=== PATIENT | female | born 2000 | race Caucasian/White ===

== ENCOUNTER 2024-04-08 15:31 | Emergency (ER) | payer OTHER, SELFPAY ==
--- NOTE | ~2024-04-08 | CT_ITS ---
EXAMINATION: CT abdomen pelvis w con DATE: 04/08/2024 19:10 INDICATION: lower abd pain X 2weeks, nausea TECHNIQUE: Computed tomography (CT) of the abdomen and pelvis was performed with 100 mL Omnipaque-350 intravenous contrast. Automated exposure control and iterative reconstruction technique were employe d. The dose-length product was 964.14 mGy-cm. COMPARISON: None. FINDINGS: Lower thorax: Unremarkable Liver: Normal. Biliary/Gallbladder: Gallbladder is normal. No bile duct dilation. Pancreas: No mass or duct dilation. Spleen: Normal. Adrenals:No mass. Kidneys: No suspicious mass, obstructing stone, or hydronephrosis. GI tract: No small or large bowel dilation. Normal appendix. Mesentery/Peritoneum: No ascites, mass, or free air. Retroperitoneum: No mass. Pelvis: Pelvic organs are within normal limits. Soft Tissues: Soft tissues and body wall unremarkable. Bones: No acute osseous finding. IMPRESSION: No acute abdominal pelvic process detected. Reviewed, dictated and finalized at location K.
--- NOTE | ~2024-04-08 | US_ITS ---
EXAMINATION: US pelvic complete w TV DATE: 04/08/2024 20:49 INDICATION: lower abd pain [id number] TECHNIQUE: Multiple endovaginal sonographic images of the pelvis were obtained. COMPARISON: CT abdomen pelvis, same date. FINDINGS: Uterus: 6.9 x 3.2 x 4.1 cm. Endometrial complex measures 5 mm. Right Ovary: 3.8 x 2.5 x 2.6 cm. Vascular flow is present. No adnexal mass. Left Ovary: 2.9 x 2.1 x 2.1 cm. Vascular flow is present. No adnexal mass. There is trace free fluid in the pelvis. IMPRESSION: Normal pelvic sonogram findings. Reviewed, dictated and finalized at location K.
[2024-04-08 15:57] VITALS: BP 133/68; PULSE 94; RESP 20; TEMP 36.4; O2SAT 99
[2024-04-08 17:53] VITALS: BP 123/71; PULSE 84; RESP 15; O2SAT 100
[2024-04-08 18:14] LABS: Basophils Percent Auto 0.4 % (0.2-1.2); Eosinophils Absolute Auto 0.1 K/mm3 (0-0.3); Eosinophils Percent Auto 0.9 % (0-4.4); Hematocrit 42.7 % (37.0-47.0); Immature Granulocyte Absolute 0.02 K/mm3 (0.00-0.031); Immature Granulocyte Percent A 0.2 % (0-0.5); Lymphocytes Absolute Auto 2.31 K/mm3 (0.9-3.2); Lymphocytes Percent Auto 22.1 % (18.3-44.2); Mean Corpuscular HGB Conc 32.8 g/dl (32-36); Mean Corpuscular Volume 88.6 fl (80-100); Mean Platelet Volume 10.6 fl (7.4-10.4); Monocytes Absolute Auto 0.6 K/mm3 (0.1-0.6); Monocytes Percent Auto 5.9 % (2.6-8.5); Neutrophils Absolute Auto 7.4 K/mm3 (1.3-6.7); Neutrophils Percent Auto 70.5 % (45.5-73.1); Platelet Count Result 304 k/mm3 (150-375); Red Blood Count 4.82 M/mm3 (4.2-5.4); Red Cell Distribution Width 12.3 % (11.5-14.5); White Blood Count 10.5 K/mm3 (4.5-10.0)
[2024-04-08 18:17] LABS: Add Urine Microscopic? NO; Appearance Urine Clear (Clear); Bilirubin Urine Negative (Negative); Blood Urine Negative (Negative); Color Urine Yellow (Yellow); Glucose Urine UA Negative (Negative); Ketones Urine Negative (Negative); Leukocyte Esterase Ur Negative LEU/UL (Negative); Nitrate Urine Negative (Negative); Protein Urine Negative (Negative); Specific Grav Ur 1.019 (1.001-1.035); Urobilinogen Urine 0.2 mg/dL (<2.0); pH Urine 7.5 (5.0-9.0)
[2024-04-08 18:25] LABS: Alanine Aminotransferase 27 U/L (6-35); Albumin Level 4.8 g/dL (3.5-5.1); Alkaline Phosphatase 56 U/L (38-126); Anion Gap 9 mmol/L (4-12); Aspartate Amino Transferase 28 U/L (14-36); Bilirubin,Total 0.5 mg/dL (0.2-1.3); Blood Urea Nitrogen 9 mg/dL (7-17); Calcium 9.3 mg/dL (8.4-10.2); Carbon Dioxide 23 mmol/L (22-30); Chloride 107 mmol/L (98-107); Estimated CRCL calculation 133 ml/min; Estimated Glomerular Filt Rate > 60; Glucose 79 mg/dL (65-110); Lipase 95 U/L (23-300); Potassium 3.9 mmol/L (3.4-5.0); Sodium 139 mmol/L (137-145)
[2024-04-08 18:41] LABS: SPREG INTERNAL CONTROL Positive; Serum Qual hCG Negative
--- NOTE | 2024-04-08 18:53 | PC.NURSE ---
Pt to CT scan via stretcher at this time.
--- NOTE | 2024-04-08 18:57 | ED.ABDPAIN ---
HPI - Abdominal Pain General Chief Complaint: Abdominal Pain Stated Complaint: abd pain Time Seen by Provider: 04/08/24 18:00 Source: patient Mode of arrival: ambulatory Limitations: no limitations History of Present Illness HPI narrative: Patient is a 24-year-old female who presents the ED with report of lower abdominal pain. patient reports having intermittent lower abdominal pain / cramping over the last 2 weeks. States pain is intermittent, constant at times. She has not been taking anything for the pain. Does report intermittent nausea, denies vomiting, diarrhea, constipation, dysuria, hematuria, fevers, abnormal vaginal bleeding. Patient denies active pain upon my evaluation. Related Data Allergies Allergy/AdvReac Type Severity Reaction Status Date / Time No Known Allergies Allergy Mild Verified 04/08/24 17:54 Review of Systems Review of Systems: CONSTITUTIONAL: Denies fever, chills, or sweats. GASTROINTESTINAL: See HPI. GENITOURINARY: Denies dysuria or hematuria. All systems reviewed & are unremarkable except as noted in HPI and below Exam Narrative: GENERAL: Well appearing, obese with BMI of 33.5, non-toxic, in no acute distress. HEAD: Normocephalic, atraumatic. RESPIRATORY: Airway patent, respirations nonlabored. Clear to auscultation bilaterally, no rales, rhonchi, wheezing. CARDIOVASCULAR: Regular rate and rhythm without murmurs, rubs, or gallops. ABDOMINAL: Soft, no significant tenderness throughout lower abdomen, nondistended. Normoactive BS. MUSCULOSKELETAL: Moves all extremities. No gross deformities. SKIN: Warm, dry, normal color. NEURO: A&O X3. Speech clear. PSYCHIATRIC: Appropriate mood and affect. Normal interaction. Course Vital Signs Vital signs: Vital Signs Temperature 97.6 F 04/08/24 15:57 Pulse Rate 94 04/08/24 15:57 Respiratory Rate 20 04/08/24 15:57 Blood Pressure 133/68 04/08/24 15:57 Pulse Oximetry 99 04/08/24 15:57 Oxygen Delivery Room Air 04/08/24 15:57 Temperature 97.6 F 04/08/24 15:57 Pulse Rate 78 04/08/24 21:26 Respiratory Rate 14 04/08/24 21:26 Blood Pressure 126/70 04/08/24 21:26 Pulse Oximetry 99 04/08/24 21:26 Oxygen Delivery Room Air 04/08/24 15:57 MDM - Abdominal Pain MDM Narrative Medical decision making narrative: Patient presented to ED with 2 week history of intermittent lower abdominal cramping. Vitals are stable upon arrival. Patient denies any pain upon my initial evaluation. Laboratory studies are unremarkable. No leukocytosis or anemia. Stable electrolytes. Urinalysis is clear. CT scan of abdomen pelvis was obtained and unremarkable. No significant findings. Pelvic ultrasound was also obtained and again unremarkable. No ovarian cyst. good blood flow to bilateral ovaries. Patient was updated on lab and imaging results, overall reassuring workup. Feel she is safe for discharge home. Advised to follow-up with PCP for further evaluation. Given return precautions. She agrees with plan. Discharged in stable condition. Medical Records Attestation: I reviewed the patient's medical records. Lab Data Attestation: I reviewed the patient's lab results. 04/08/24 18:07 04/08/24 18:08 Labs: Lab Results 04/08/24 04/08/24 Range/Units 18:07 18:08 WBC 10.5 H (4.5-10.0) K/mm3 RBC 4.82 (4.2-5.4) M/mm3 Hgb 14.0 (12.0-15.0) g/dL Hct 42.7 (37.0-47.0) % MCV 88.6 (80-100) fl MCH 29.0 (26-34) pg MCHC 32.8 (32-36) g/dl RDW 12.3 (11.5-14.5) % Plt Count 304 (150-375) k/mm3 MPV 10.6 H (7.4-10.4) fl Immature Gran % (Auto) 0.2 (0-0.5) % Neut % (Auto) 70.5 (45.5-73.1) % Lymph % (Auto) 22.1 (18.3-44.2) % Frederick % (Auto) 5.9 (2.6-8.5) % Eos % (Auto) 0.9 (0-4.4) % Baso % (Auto) 0.4 (0.2-1.2) % Lymph # (Auto) 2.31 (0.9-3.2) K/mm3 Frederick # (Auto) 0.6 (0.1-0.6) K/mm3 Eos # (Auto) 0.1 (0-0.3) K/mm3 Baso # (Aut
[2024-04-08 20:00] VITALS: BP 126/76; PULSE 67; RESP 18; O2SAT 97
[2024-04-08 21:26] VITALS: BP 126/70; PULSE 78; RESP 14; O2SAT 99
== END 2024-04-08 21:26 | disposition home or self-care (01) ==
PROVIDERS: Emergency Medicine; Emergency Provider Physician Assistant
DX: R10.30 Lower abdominal pain, unspecified (principal)
CPT/HCPCS: 36415; 74177; 76830; 76856; 80053; 81003; 81025; 83690; 84703; 85025; 99284; Q9967

== ENCOUNTER 2024-06-28 10:54 | Outpatient (CLI) | payer OTHER, SELFPAY ==
[2024-06-28 13:23] LABS: Beta HCG Quantitative 529.75 mIU/ML
== END 2024-06-28 10:55 | disposition home or self-care (01) ==
LOC: ANHLAB 10:59
PROVIDERS: PCP Nurse Practitioner Family; Visit Provider Advanced Practice Midwife
DX: N91.2 Amenorrhea, unspecified (principal)
CPT/HCPCS: 36415; 84702

== ENCOUNTER 2024-06-30 10:41 | Outpatient (CLI) | payer OTHER, SELFPAY | END 2024-06-30 10:42 | disposition home or self-care (01) | LOC: ANHLAB 10:46 | PROVIDERS: PCP Nurse Practitioner Family; Visit Provider Advanced Practice Midwife | DX: N91.2 Amenorrhea, unspecified (principal) | CPT/HCPCS: 36415; 84702 ==

== ENCOUNTER 2024-11-02 22:18 | Emergency (ER) | payer BC, SELFPAY ==
[2024-11-02 22:23] VITALS: BP 141/77; PULSE 100; RESP 17; TEMP 36.1; O2SAT 100
--- NOTE | 2024-11-02 23:53 | ED.FEMALEGU ---
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 Patient recently tested positive for COVID. She initially called L&D but they prompted her to come to the emergency department since she is COVID positive. Denies any abdominal cramping, vaginal bleeding or discharge. Denies any additional symptoms or concerns at this time. Related Data Allergies Allergy/AdvReac Type Severity Reaction Status Date / Time No Known Allergies Allergy Mild Verified 09/13/24 14:52 Review of Systems Review of Systems: All systems are reviewed and are negative unless stated otherwise in the HPI. [facility] Past Medical History Medical History GERD without esophagitis Anxiety Irritable bowel syndrome with diarrhea Surgical History Surgical History Hx of tonsillectomy H/O adenoidectomy Family History Family History Mother Depression with anxiety Hypertension Sibling Heart disease heart problems Grandparent Alcoholism maternal grandmother Cancer paternal grandmother had breast cancer Depression with anxiety Diabetes mellitus Hypertension Cerebrovascular accident Social History Social History Smoking status: Never smoker Alcohol intake: never Substance use type: does not use Do You Feel Safe in your Home?: Yes Lack of Transportation: No Lack of Food: Never True Current Housing: I Have Housing Concerned About Future Housing: No Difficulty Paying Gas/Electric Bills: No Difficulty Paying for Meds: No Currently Unemployed: No Education: High School Diploma/GED Difficulty w/ Childcare or Family Care: No Living arrangements: other Exam Narrative: General: Alert, awake, afebrile, in no acute distress. HEENT: PERRL, no rhinorrhea, no post nasal drip, oropharynx clear. Neck: Trachea midline, no JVD, no lymphadenopathy. Cardiovascular: Regular rate and rhythm, no murmurs, rubs or gallops, no peripheral edema. Respiratory: Clear to auscultation bilaterally, no tachypnea, no wheezing, no rhonchi, no rubs, no respiratory distress. Abdomen: Soft, nontender, nondistended, no rebound, no guarding, no peritoneal signs. Musculoskeletal: No joint swelling or deformity, normal muscle tone. Skin: No rashes or petechia, no signs of infection. Psychiatric: Alert and oriented, normal behavior and judgment for situation. Neurological: Alert and oriented to person, place, and time. Follows all commands. No focal deficits, speech is clear and fluent. Course Vital Signs Vital signs: Vital Signs Temperature 97.0 F L 11/02/24 22:23 Pulse Rate 100 11/02/24 22:23 Respiratory Rate 17 11/02/24 22:23 Blood Pressure 141/77 H 11/02/24 22:23 Pulse Oximetry 100 11/02/24 22:23 Oxygen Delivery Room Air 11/02/24 22:23 Temperature 97.0 F L 11/02/24 22:23 Pulse Rate 100 11/02/24 22:23 Respiratory Rate 17 11/02/24 22:23 Blood Pressure 141/77 H 11/02/24 22:23 Pulse Oximetry 100 11/02/24 22:23 Oxygen Delivery Room Air 11/02/24 22:23 MDM - Female Genitourinary MDM Narrative Medical decision making narrative: The patient was evaluated by myself in the emergency department. History is obtained from patient who is an independent historian and physical exam was performed. External medical records were reviewed at this time. heart tones were obtained and noted to be between 145-150 beats per minute. Patient states that this is normally where her heart tones usually 1. Differential diagnosis considerations include intrauterine demise, decelerations, threatened miscarriage. Comorbidities impacting this visit include none. I have evaluated and discussed social determinants of health with the patient that could potentially impact subsequent diagnosis and treatment plans. On repeat assessment of the patient, reevaluation revealed that the patient is doing well and is in no acute distress. Patient symptoms have improved since she arrived to our emergency department. Repeat vital signs were all reviewed and noted to be stable. Differential diagnosis and treatment plan were discussed with the patient at bedside. Patient agrees with discussion and after shared medical decision making agrees with discharge. All questions were answered to the patient's satisfaction. Patient will follow up with her OBGYN in 3-5 days. Patient was provided with strict return precautions and instructed to return to the emergency department if any new or worsening symptoms develop. The patient was discharged in stable condition. Discharge Plan Discharge Clinical Impression: heart tones present, Second trimester Patient Disposition: Home, Self-Care Condition: Improved Instructions: Antibiotic Form, COVID-19 (Coronavirus Disease 2019) (ED) Additional Instructions: Please follow-up with your OBGYN within the next 3-5 days. Return to the ED if any new or worsening symptoms develop. Patient Language: Cymraes Prescriptions: No Action PNV #[id number] acid-dha 35 mg iron-5 mg iron-1 mg capsule 1 cap PO DAILY Qty: 90 3RF Follow-up/Referrals: Bambi Correa NP [Primary Care Provider] - 3 Days Time of Disposition: 23:55
--- OUTSIDE RECORDS SUMMARY | 2024-11-04 20:45 | XMS_ITS | Referral Summary ---
Author Organization [facility] Address [address] [place] [address] Care Team Providers Care Nodulizer Name Role Phone Maia Gayle MD Primary Care Provider [phone] Source Comments [facility],non-[facility] Affiliates and Associated Physician Practices is amultiple site organization consisting of ambulatory clinics and hospital sitesin [place], [place], [place] and [place]. This disclosure is being madepursuant to the Care Everywhere program and may not contain all information available regarding this patient. Last updated 18.[facility] [employer] Allergies No known active allergies Medications Be aware that medications may not be up to date on this document. Always verify current medications with the patient. No known medications Active Problems No known active problems Social History Tobacco Use Types Packs/Day Years Used Date Smoking Tobacco: Never Assessed Alcohol Use Standard Drinks/Week Comments No 0 (1 standard drink = 0.6 oz pur e alcohol) Sex and Gender Information Value Date Recorded Sex Assigned at Not on file Gender Identity Not on file Sexual Orientation Not on file Last Filed Vital Signs Vital Sign Reading Time Taken Comments Blood Pressure 118/65 03/08/2012 8:15 AM CDT Pulse 110 03/08/2012 8:15 AM CDT Temperature 37.1 ??C (98.8 ??F) 03/08/2012 8:15 AM CD T Respiratory Rate 22 03/08/2012 8:15 AM CDT Oxygen Saturation 100% 03/07/2012 11:36 PM CDT Inhaled Oxygen Concentration - - Weight 61 kg (134 lb 7.7 oz) 03/07/2012 7:46 PM CDT Height - - Body Mass Index - - Plan of Treatment Not on file Care Teams Nodulizer Relationship Specialty Start Date End Date Maia Gayle MD [address] [place] [address] PCP - General 03/07/12
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
--- OUTSIDE RECORDS SUMMARY | 2024-11-04 20:45 | XMS_ITS | Clinical Summary ---
Author Organization [facility] Address [address] [place] [address] [address] Care [address] Worker Name Role Phone Maia Gayle MD Primary Care Provider [phone] Source Comments [facility],non-[facility] Affiliates and Associated Physician Practices is amultiple site organization consisting of ambulatory clinics and hospital sitesin [place], [place], [place] and [place]. This disclosure is being madepursuant to the Care Everywhere program and may not contain all information available regarding this patient. Last updated 18.[facility] Allergies No known active allergies Medications Be [...] Mass Index - - Plan of Treatment Health Maintenance Due Date Last Done Comments PAP SMEAR 2001 HIV SCREENING 2016 HPV VACCINE (1 - 3-dose series) 2016 CHLAMYDIA/GONORRHEA SCREENING 2017 MENINGOCOCCAL (Group B) VACC INE (1 of 2 - Standard) 2017 HEPATITIS C SCREENING 03/10/2019 DTAP/TDAP/TD VACCINES (1 - Tdap) 2020 HEPATITIS B VACCINE (1 of 3 - 19+ 3-dose series) 2020 COVID-19 VACCINE (1 - 2023-2 5 season) 2024 INFLUENZA VACCINE (#1) 2024 DEPRESSION SCREENING 10/13/2024 ZOSTER VACCINE (1 of 2) 2051 HIB VACCINE Aged Out No longer eligi ble based on patient's age to complete this topic MENINGOCOCCAL VACCINE Aged Out No leno alva eligible based on patient's age to complete this topic PNEUMOCOCCAL VACCINE Aged Out No long er eligible based on patient's age to complete this topic Care Teams Drive Worker Relationship Specialty Start Date End Date Maia Gayle MD [address] [place] [address] PCP - General 03/07/12
--- OUTSIDE RECORDS SUMMARY | 2024-11-04 20:45 | XMS_ITS | CONTINUITY OF CARE DOCUMENT ---
Author Name alda lizama Address Unknown Organization [facility] Address [id number] [place] [address] [address] [place] [address] Phone [phone] Care Team Providers Care Gold Leaf Gilder Name Role Phone Sugey Williamson MD Unavailable KRYSTIN CELIS MD Unavailable [phone] INSURANCE PROVIDERS Payer name Policy type / Coverage type [place] Medicaid 1 [id number]
--- OUTSIDE RECORDS SUMMARY | 2024-11-04 20:45 | XMS_ITS | Clinical Summary ---
Author Organization [facility] Address [address] [place] [address] Phone Care Team Providers Care [employer] Manager Name Role Phone Cris Posada MD Primary Care Provider Unavail able Allergies No known active allergies Medications No known medications Active Problems No known active problems Immunizations Immunization Administration Dates Next Due (ACTHIB/HIBERIX)(2 MOS-5 YRS /6 WKS-4 YRS) HAEMOPHILUS INFLUENZAE TYPE B VACCINE (HIB), PRP-T CONJUGATE, 4 DOSE, 0.5 ML IM 09/15/2002,2001,2001,05/22 (ADACEL/BOOSTRIX)(10 YR UP) TDAP VACCINE, 0.5ML, IM 09/13/2020,08/13/2012 (GARDASIL 9)(9-45 YRS) HUMAN PAPILLOMAVIRUS VACCINE, TYPES 6, 11, 16, 18, 31, 33, 45, 52, 58, NONAVALENT (9VHPV), 2 OR 3 DOSE, IM 09/13/2020 (GARDASIL)(9-45 YRS) HUMAN PAPILLOMAVIRUS VACCINE, TYPES 6, 11, 16, 18, QUADRIVALENT (4VHPV), 3 DOSE, IM 07/26/2015 (INFANRIX)(6 WKS-6 YRS) DIPT HERIA, TETANUS TOXOIDS, AND ACCELLULAR PERTUSSIS VACCINE (DTAP), 0.5 ML IM 04/24/2006,09/15/2002,2001,07/24,2001 (IPOL)(6 WKS AND UP) POLIOVI REBECCA VACCINE, INACTIVATED (IPV), 3 DOSE, SUBCUT OR IM 04/24/2006,09/15/2002,2001,05/22 (M-M-R II/PRIORIX)(12 MO UP) MEASLES, MUMPS AND RUBELLA VIRUS VACCINE, 0.5 ML IM/SUBCUT 06/15/2007,04/24/2006 (MENACTRA)(9 MO-55 YR) MENIN GOCOCCAL POLYSACCHARIDE A, C, Y AND W-135 DIPTHERIA TOXOID CONJUGATE VACCINE, (PF), 0.5ML, IM 08/13/2012 (VARIVAX)(12 MOS UP)VARICELL A VIRUS VACCINE (PF) 0.5 ML, SUB CUT 12/17/2007,03/16/2002 Hepatitis B Vaccine 2001,2001,2000 INFLUENZA VACCINE QUADRIVALE NT 6 MOS UP PF IM 09/13/2020,07/04/2017 Influenza Seasonal Unspecifi ed Formulation IM 07/26/2015 Meningococcal A Conjugate Vaccine IM 07/04/2017 PREVNAR (PCV13) pneumococcal 13-valent conjugate Vaccine 06/15/2002,2001,2001,05/22 Skin Test TB 09/13/2020 Social History Tobacco Use Types Packs/Day Years Used Date Smoking Tobacco: Never Assessed Comments Unknown Sex and Gender Information Value Date Recorded Sex Assigned at Not on file Legal Sex Female 3:03 PM CDT Gender Identity Not on file Sexual Orientation Not on file Last Filed Vital Signs Vital Sign Reading Time Taken Comments Blood Pressure 112/72 02/08/2021 10:24 AM CDT Pulse 78 02/08/2021 10:24 AM CDT Temperature 36.7 ??C (98 ??F) 02/08/2021 10:24 AM CDT Respiratory Rate 18 02/08/2021 10:24 AM CDT Oxygen Saturation 100% 02/08/2021 10:24 AM CDT Inhaled Oxygen Concentration - - Weight 104.8 kg (231 lb) 02/08/2021 10:24 AM CDT Height 172.7 cm (5' 8 ) 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 Body Mass Index 35.12 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 Plan of Treatment Health Maintenance Due Date Last Done Comments CHLAMYDIA SCREENING (ANNUAL) 11-24 YEARS 2012 CERVICAL CANCER SCREENING 2022 INFLUENZA VACCINE (#1) 2024 0, 07/04/2017, 07/26/2015 DTAP/TDAP/TD VACCINES (8 - T d or Tdap) 09/13/2030 09/13/2020, 08/13/2012, 04/24/2006, Additional history exists HEPATITIS B VACCINES Completed 2001, 2001, 2001 PNEUMOCOCCAL VACCINE 0-64 YEARS Completed 06/15/2002, 2001, 2001, Additional history exists HPV VACCINES Completed 09/13/2020, 07/26/2015 Insurance Care Teams [employer] Relationship Specialty Start Date End Date Cris Posada MD PCP - General Pediatrics 07/04/17
--- OUTSIDE RECORDS SUMMARY | 2024-11-04 20:45 | XMS_ITS | Data Portability ---
Author Organization [facility] Address [address] [place] [place] [address] Care Team Providers Care Casing Sewer Name Role Phone ERICALEATHA LUCIA Primary Care Provider [phone] Assessment Encounter Date Assessment Date Assessment LastModified by Organization Details LastModified Time 09/22/2024 09/22/2024 Patient is __16_weeks . Discussed plan. Not available 09/22/2024 13:52:40 10/20/2024 10/20/2024 Patient is _20__weeks . Discussed plan. [email or web address] Not available 10/20/2024 16:47:34 Plan of Treatment Reminders Order Date Submit Date Provider Last Modified By Organization Details Last Modified Time Details Appointments U/S OB BASELIN E 2024 11:00A M ULTRASOUND Not available Not available Not available OB ROUTINE 2024 01:45P M Rebecca Romero CNM Not available Not available Not available Lab drug screen, urine 2023 024 [email or web address] [place], [address], [place], [address], 08/25/2024 12:22:40 culture , urine 2023 024 [facility] (Lab), [address], [place], [address], 08/26/2024 23:47:26 Referral None recorde d. Procedures None recorde d. Surgeries None recorde d. Imaging US, obstetr ic, limited 2023 024 [email or web address] [address] [place], [address], [place], [address], 09/22/2024 14:19:44 US, obstetr ic, 2nd or 3rd trimest er 2024 025 [email or web address] [address], [address], [place], [address], 10/20/2024 21:45:30 Medication Orders scopola mine 1 mg over 3 days transde rmal patch 2023 024 [facility]acy #[id number], [address], [place], [address], 08/25/2024 12:30:25 Patient TargetsNo targets recorded. Patient InstructionsNo instructions recorded. Reason for Referral None Reported. Results Created Date Observation Date Name Description Value Unit Range Abnormal Flag Note LastModifiedBy Organization Detail LastModifiedTime 08/30/20 24 08/30/2024 [UNIT Y] ANEUP LOIDY NIPT fraction 5.3% normal Not Available [facility] [address], [place], [address], 08/30/2024 17:29:11 08/30/20 24 08/30/2024 [UNIT Y] ANEUP LOIDY NIPT 22Q11.2 microdeletio n LOW RISK <1 in 10,000 normal Not Available [facility] [address], [place], [address], 08/30/2024 17:29:11 08/30/20 24 08/30/2024 [UNIT Y] ANEUP LOIDY NIPT sex chromosome aneuploidy NOT DETECT ED normal Not Available [facility] [address], [place], [address], 08/30/2024 17:29:11 08/30/20 24 08/30/2024 [UNIT Y] ANEUP LOIDY NIPT monosomy X LOW RISK <1 in 10,000 normal Not Available [facility] [address], [place], [address], 08/30/2024 17:29:11 08/30/20 24 08/30/2024 [UNIT Y] ANEUP LOIDY NIPT trisomy 13 LOW RISK <1 in 10,000 normal Not Available [facility] [address], [place], [address], 08/30/2024 17:29:11 08/30/20 24 08/30/2024 [UNIT Y] ANEUP LOIDY NIPT trisomy 18 LOW RISK <1 in 10,000 normal Not Available [facility] [address], [place], [address], 08/30/2024 17:29:11 08/30/20 24 08/30/2024 [UNIT Y] ANEUP LOIDY NIPT trisomy 21 LOW RISK <1 in 10,000 normal Not Available [facility] [address], [place], [address], 08/30/2024 17:29:11 08/30/20 24 08/30/2024 [UNIT Y] ANEUP LOIDY NIPT sex FEMALE normal Not Available [facility] [address], [place], [address], 08/30/2024 17:29:11 08/30/20 24 08/30/2024 [UNIT Y] ANEUP LOIDY NIPT gestation SINGLE TON normal Not Available [facility] [address] , [place], [address], 08/30/2024 17:29:11 08/30/20 24 08/30/2024 [UNIT Y] ANEUP LOIDY NIPT for detailed report, see pdf See PDF normal Not Available [facility] [address], [place], [address], 08/30/2024 17:29:11 09/02/20 24 09/02/2024 [UNIT Y] CHRISTINE Bone sickle cell disease/beta -thalassemia /hemoglobino pathies carrier screen NEGATI VE normal Not Available [facility] [address], [place], [address], 09/02/2024 23:34:44 09/02/20 24 09/02/2024 [UNIT Y] CHRISTINE Bone alpha-thalas semia carrier screen NEGATI VE normal Not Available [facility] [address], [place], [address], 09/02/2024 23:34:44 09/02/20 24 09/02/2024 [UNIT Y] CHRISTINE Bone cystic fibrosis carrier screen NEGATI VE normal Not Available [facility] [address], [place], [address], 09/02/2024 23:34:44 09/02/20 24 09/02/2024 [UNIT Y] CHRISTINE Bone spinal muscular atrophy carrier screen NEGATI VE 2 SMN1 copies , SNP not presen t normal Not Available [facility] [address], [place], [address], 09/02/2024 23:34:44 09/02/20 24 09/02/2024 [UNIT Y] CHRISTINE Bone for detailed report, see pdf See PDF normal Not Available [facility] [address], [place], [address], 09/02/2024 23:34:44 08/25/20 24 08/25/2024 CBC W/DIF F WBC 11.1 10'3/ uL 3.5-10 .5 high Not Available [facility] (Lab) [address], [place], [address], 08/26/2024 12:29:11 08/25/20 24 08/25/2024 CBC W/DIF F RBC 4.61 10'6/ uL (based on docume nted legal sex) 3.80-5 .20 Not Available [facility] (Lab) [address], [place], [address], 08/26/2024 12:29:11 08/25/20 24 08/25/2024 CBC W/DIF F HGB 13.6 g/dL (based on docume nted legal sex) 11.6-1 5.4 Not Available [facility] (Lab) [address], [place], [address], 08/26/2024 12:29:11 08/25/20 24 08/25/2024 CBC W/DIF F HCT 40.8 % (based on docume nted legal sex) 34.0-4 5.0 Not Available [facility] (Lab) [address], [place], [address], 08/26/2024 12:29:11 08/25/20 24 08/25/2024 CBC W/DIF F MCV 88.5 fL 80.0-9 9.0 Not Available [facility] (Lab) [address], [place], [address], 08/26/2024 12:29:11 08/25/20 24 08/25/2024 CBC W/DIF F MCH 29.5 pg 27.0-3 4.0 Not Available [facility] (Lab) [address], [place], [address], 08/26/2024 12:29:11 08/25/20 24 08/25/2024 CBC W/DIF F MCHC 33.3 g/dL 32.0-3 5.5 Not Available [facility] (Lab) [address], [place], [address], 08/26/2024 12:29:11 08/25/20 24 08/25/2024 CBC W/DIF F RDW 12.4 % 11.0-1 5.0 Not Available [facility] (Lab) [address], [place], [address], 08/26/2024 12:29:11 08/25/20 24 08/25/2024 CBC W/DIF F plt 274 10'3/ uL 150-40 0 Not Available [facility] (Lab) [address], [place], [address], 08/26/2024 12:29:11 08/25/20 24 08/25/2024 CBC W/DIF F MPV 11.5 fL 8.8-12 .1 Not Available [facility] (Lab) [address], [place], [address], 08/26/2024 12:29:11 08/25/20 24 08/25/2024 CBC W/DIF F NRBC's 0.0 % 0.0 Not Available [facility] (Lab) [address], [place], [address], 08/26/2024 12:29:11 08/25/20 24 08/25/2024 CBC W/DIF F absolute NRBCs 0.0 10'3/ uL no refere nce range establ ished Not Available [facility] (Lab) [address], [place], [address], 08/26/2024 12:29:11 08/25/20 24 08/25/2024 CBC W/DIF F neutrophils 76.3 % 34.0-7 3.0 high Not Available [facility] (Lab) [address], [place], [address], 08/26/2024 12:29:11 08/25/20 24 08/25/2024 CBC W/DIF F lymphocytes 16.5 % 15.0-5 0.0 Not Available [facility] (Lab) [address], [place], [address], 08/26/2024 12:29:11 08/25/20 24 08/25/2024 CBC W/DIF F monocytes 6.0 % 1.0-15 .0 Not Available [facility] (Lab) [address], [place], [address], 08/26/2024 12:29:11 08/25/20 24 08/25/2024 CBC W/DIF F eosinophils 0.5 % 0.0-8. 0 Not Available [facility] (Lab) [address], [place], [address], 08/26/2024 12:29:11 08/25/20 24 08/25/2024 CBC W/DIF F basophils 0.3 % 0.0-2. 0 Not Available [facility] (Lab) [address], [place], [address], 08/26/2024 12:29:11 08/25/20 24 08/25/2024 CBC W/DIF F immature granulocytes 0.4 % no define d refere nce range Not Available [facility] (Lab) [address], [place], [address], 08/26/2024 12:29:11 08/25/20 24 08/25/2024 CBC W/DIF F absolute neutrophils 8.5 10'3/ uL 1.5-8. 0 high Not Available [facility] (Lab) [address], [place], [address], 08/26/2024 12:29:11 08/25/20 24 08/25/2024 CBC W/DIF F absolute lymphocytes 1.8 10'3/ uL 1.0-4. 0 Not Available [facility] (Lab) [address], [place], [address], 08/26/2024 12:29:11 08/25/20 24 08/25/2024 CBC W/DIF F absolute monocytes 0.7 10'3/ uL 0.2-1. 0 Not Available [facility] (Lab) [address] [place], [address], 08/26/2024 12:29:11 08/25/20 24 08/25/2024 CBC W/DIF F absolute eosinophils 0.1 10'3/ uL 0.0-0. 6 Not Available [facility] (Lab) [address], [place], [address], 08/26/2024 12:29:11 08/25/20 24 08/25/2024 CBC W/DIF F absolute basophils 0.0 10'3/ uL 0.0-0. 3 Not Available [facility] (Lab) [address], [place], [address], 08/26/2024 12:29:11 08/25/20 24 08/25/2024 CBC W/DIF F absolute immature granulocytes 0.0 10'3/ uL 0.00-0 .10 08/26 2:08 AM: P indic ates parti al resul ts on a panel have been relea sed. Addit ional resul ts will follo w. 08/26 2:08 AM: This resul t has been final verif ied. No addit ional or juarez ed resul ts are expec brandie. Not Available [facility] (Lab) [address], [place], [address], 08/26/2024 12:29:11 08/25/20 24 08/25/2024 HIV 1/2 ANTIG EN/AN TIBOD Y, REFLE X CONFI RMATI ON HIV antigen/anti body Nonrea ctive nonrea ctive HIV-1 antig en and HIV-1 /HIV- 2 antib odies were not detec brandie. No labor atory evide nce of HIV infec tion. Not Available [facility] (Lab) [address], [place], [address], 08/26/2024 12:29:11 08/25/20 24 08/25/2024 HEPAT ITIS B SURFA CE ANTIG EN hepatitis B surface antigen Non-re active non-re active This assay was perfo rmed using [employer] ratio n reage nts and test kits. Value s obtai carola with other assay metho ds or kits canno t be used inter juarez eably . Not Available [facility] (Lab) [address], [place], [address], 08/26/2024 12:29:11 08/25/20 24 08/25/2024 HEPAT ITIS C ANTIB THI SCREE N, REFLE X TO CONFI RMATI ON hepatitis C antibody Non-re active non-re active Antib odies to HCV Not Detec brandie, does not exclu de the possi bilit y of expos ure to HCV. Not Available [facility] (Lab) [address], [place], [address], 08/26/2024 12:29:12 08/25/20 24 08/25/2024 RUBEL LA IGG ANTIB THI, QUANT rubella antibodies, IgG Reacti ve reacti ve Not Available [facility] (Lab) [address], [place], [address], 08/26/2024 12:29:12 08/25/20 24 08/25/2024 RUBEL LA IGG ANTIB THI, QUANT rubella antibodies, IgG quant 20.7 IU/mL >=10 Non-r eacti ve (Non- Immun e) <10 IU/mL React yvette (Immu ne) > or = 10 IU/mL Not Available [facility] (Lab) [address], [place], [address], 08/26/2024 12:29:12 08/25/20 24 08/25/2024 HEMOG LOBIN A1C hemoglobin A1C 5.0 % 0-5.6 The Ameri can [employer]abe meka [employer] iatio n recom mends that a prima ry goal of thera py flavia d be a HBA1C of < 7% and that physi cians shoul d reeva luate the treat ment regim en in patie nts with HBA1C value s consi stent ly > 8%. <5.7% Libby l 5.7 - 6.4% Incre ased risk for diabe meka >=6.5 % Diagn ostic of diabe meka <7.0% Goal of thera py >8.0% Actio n sugge sted Not Available [facility] (Lab) [address], [place], [address], 08/26/2024 12:29:12 11/13/20 24 08/25/2024 TYPE/ RH/SC REEN ABO/Rh type B POS Not Available [facility] (Lab) [address], [place], [address], 08/26/2024 12:29:13 08/25/20 24 08/25/2024 TYPE/ RH/SC REEN antibody screen NEG Not Available [facility] (Lab) [address], [place], [address], 08/26/2024 12:29:13 08/25/20 24 08/25/2024 TYPE/ RH/SC REEN exp date 2023 23:59 Not Available [facility] (Lab) [address], [place], [address], 08/26/2024 12:29:13 08/25/20 24 08/25/2024 RPR SCREE N, REFLE X TITER /CONF IRMAT ION RPR screen Nonrea ctive nonrea ctive Not Available [facility] (Lab) [address], [place], [address], 08/26/2024 12:29:13 08/25/20 24 08/25/2024 CULTU RE: URINE result report SEE RESULT S BELOW Test: Cultu re: Urine Speci men Sourc e: Urine - Clean Catch Speci men Type: Urine Speci men Date: 08/25 1134 Resul t Date: 08/26 2243 Resul t Statu s: Final resul t Abnor mal: No Resul ting Lab: [facility] [address] [facility] [address] Tel: CULTU RE ----- ----- ----- --- No growt h in 1 day (dete ction level of 10,00 0 colon ies / ml.) Not Available [facility] (Lab) [address], [place], [address], 08/26/2024 23:47:26 08/25/20 24 08/25/2024 drug scree n, urine Amphetamines : negati ve Not Available [place] [address], [place], [address], 08/25/2024 12:21:52 08/25/20 24 08/25/2024 drug scree n, urine Cannabinoids : negati ve Not Available [place] [address], [place], [address], 08/25/2024 12:21:52 08/25/20 24 08/25/2024 drug scree n, urine Cocaine: negati ve Not Available [place] [address], [place], [address], 08/25/2024 12:21:52 08/25/20 24 08/25/2024 drug scree n, urine Opiates: negati ve Not Available [place] [address], [place], [address], 08/25/2024 12:21:52 08/25/20 24 08/25/2024 drug scree n, urine Phenocyclidi ne: negati ve Not Available [place] [address], [place], [address], 08/25/2024 12:21:52 08/25/20 24 08/25/2024 drug scree n, urine Barbiturates : negati ve Not Available [place] [address], [place], [address], 08/25/2024 12:21:52 08/25/20 24 08/25/2024 drug scree n, urine Benzodiazepi paula: negati ve Not Available [place] [address], [place], [address], 08/25/2024 12:21:52 08/25/20 24 08/25/2024 drug scree n, urine Ethanol: negati ve Not Available [place] [address], [place], [address], 08/25/2024 12:21:52 08/25/20 24 08/25/2024 drug scree n, urine Hallucinogen s: negati ve Not Available [place] [address], [place], [address], 08/25/2024 12:21:52 08/25/20 24 08/25/2024 drug scree n, urine Inhalants: negati ve Not Available [place] [address], [place], [address], 08/25/2024 12:21:52 08/25/20 24 08/25/2024 drug scree n, urine Anabolic Steroids: negati ve Not Available [place] [address], [place], [address], 08/25/2024 12:21:52 08/25/20 24 08/25/2024 drug scree n, urine Other: negati ve Not Available [place] [address], [place], [address], 08/25/2024 12:21:52 08/02/20 24 08/02/2024 US, obste tric, 1st trime ster No observ ation record ed. [email or web address] [address] [facility], [place], [address], 08/02/2024 21:02:12 08/24/20 24 08/24/2024 US, obste tric, nucha l trans lucen cy No observ ation record ed. [email or web address] [place] [address], [place], [address], 08/24/2024 13:09:14 08/24/20 24 08/24/2024 US, obste tric, follo w-up No observ ation record ed. KENDAL [address], [place], [address], 08/30/2024 10:41:02 09/22/20 24 09/22/2024 US, obste tric, limit ed No observ ation record ed. [email or web address] [place] [address], [place], [address], 09/22/2024 13:11:40 09/22/20 24 09/22/2024 US, obste tric, follo w-up No observ ation record ed. [address], [place], [address], 09/23/2024 09:28:47 10/20/19 25 10/20/2024 US, obste tric, 2nd or 3rd trime ster No observ ation record ed. [email or web address] [place] [address], [place], [address], 10/20/2024 18:08:06 10/20/19 25 10/20/2024 US, obste tric, follo w-up No observ ation record ed. [email or web address] [address], [place], [address], 10/22/2024 17:43:31 Result Notes None recorded. Problems Name Problem SNOMED Code Status Onset Date Resolution Date Notes Provider Name and Address Organization Details Recorded Time 23123696 Active 2023 Lexie Olivo [facility], [facility] 4 12:10:37 Obesity 175696677 Active bmi 37-anten atal testing Rebecca Romero CNM [address], [place], [address], [facility] 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 4 12:36:02 COVID-19 380590323 Active 2024 bASA and serial growth Angelica Valentin null, [facility] 5 15:23:56 COVID-19 046170997 Active 2024 bASA and serial growth Angelica Valentin [facility], [facility] 5 15:23:56 Problem Notes None recorded. Procedures Surgical History Date Name Laterality Status Provider Name and Address Organization Details Recorded Time 04/13/20 24 Date of Last Pap Smear completed [facility] 07/08/2024 13:18:31 10/13/19 09 tonsilectomy/adeno ids completed [facility] 08/04/2024 16:59:33 10/13/19 07 adenomyomectomy completed [facility] 08/04/2024 16:59:28 Imaging Results Imaging Date Name Status LastModified by Organization Details LastModified Time 08/02/2024 US, obstetric, 1st trimester completed [email or web address] [address], [place], [address], 08/02/2024 21:02:12 08/24/2024 US, obstetric, nuchal translucency completed [email or web address] [place] [address], [place], [address], 08/24/2024 13:09:14 08/24/2024 US, obstetric, follow-up completed KENDAL [address], [place], [address], 08/30/2024 10:41:02 09/22/2024 US, obstetric, limited completed [email or web address] [place] [address], [place], [address], 09/22/2024 13:11:40 09/22/2024 US, obstetric, follow-up completed [email or web address] [address], [place], [address], 09/23/2024 09:28:47 10/20/2024 US, obstetric, 2nd or 3rd trimester completed [email or web address] [place] [address], [place], [address], 10/20/2024 18:08:06 10/20/2024 US, obstetric, follow-up completed [email or web address] [address], [place], [address], 10/22/2024 17:43:31 Procedure Notes None recorded. Medical Equipment None Reported. Allergies No known drug allergies Medications Name Sig Start Date Stop Date Status Note LastModified by Organization Details LastModified Time benzonatate 200 mg capsule TAKE 1 CAPSULE BY MOUTH THREE TIMES DAILY NEEDED FOR COUGH 01/19 completed Not Available Not Available Not Available prednisone 20 mg tablet TAKE 2 TABLETS BY MOUTH DAILY WITH FOOD FOR 5 DAYS. DO NOT TAKE WITH ASPIRIN OR NSAIDS SUCH ALEVE OR IBUPROFEN ETC 01/19 completed Not Available Not Available Not Available amoxicillin 875 mg tablet TAKE 1 TABLET BY MOUTH EVERY 12 HOURS FOR 10 DAYS 01/19 completed Not Available Not Available Not Available scopolamine 1 mg over 3 days transdermal patch APPLY 1 PATCH BY TRANSDERM AL ROUTE FOR 3 DAYS. active Not Available Not Available No t Available albuterol sulfate HFA 90 mcg/actuati on aerosol inhaler INHALE 2 PUFFS BY MOUTH EVERY 4 HOURS NEEDED 01/19 completed Not Available Not Available Not Available ondansetron 4 mg disintegrat ing tablet DISSOLVE 1 TABLET ON THE TONGUE EVERY 6 HOURS active Not Available Not Available No t Available Vitafol Ultra 29 mg iron-1 mg-200 mg capsule active Not Available Not Available Not Available Aurovela Fe 1-20 (28) 1 mg-20 mcg (21)/75 mg (7) tablet TAKE 1 TABLET BY MOUTH EVERY DAY 04/13 completed Not Available Not Available Not Available Nextstellis 3 mg-14.2 mg (28) tablet TAKE 1 TABLET BY MOUTH EVERY DAY 07/09 completed Not Available Not Available Not Available Vitals Date Recorded Body height Body mass index (BMI) Body weight Systolic blood pressure Diastolic blood pressure Provider Name and Address Organization Details Last Updated DateTime 08/25/2024 170.18 cm 35.2 kg/m2 240909.2 8 g 122 mm[Hg] 76 mm[Hg] Lexie Olivo [facility] 4 12:09:40 Date Recorded Body weight Body mass index (BMI) Body height Systolic blood pressure Diastolic blood pressure Provider Name and Address Organization Details Last Updated DateTime 09/22/2024 917923.2 8325 g 35.2 kg/m2 170.18 cm 115 mm[Hg] 77 mm[Hg] Lexie [facility] 4 12:25:54 Date Recorded Body weight Body mass index (BMI) Body height Systolic blood pressure Diastolic blood pressure Provider Name and Address Organization Details Last Updated DateTime 10/20/2024 073250.0 6036 g 35.7 kg/m2 170.18 cm 117 mm[Hg] 80 mm[Hg] [facility] 5 16:35:32 Social History Question Answer Notes LastModified by Organizat ion Details LastModified Time Tobacco Smoking Status Never Smoker Lena Cartagena yeison, [facility] 01/20/2024 13:45:36 What Is Your Level Of Alcohol Consumption? None [email or web address] Information not available 07/09/2024 If You Are , What Was Your Level Of Alcohol Consumption Prior To ? Occasional [email or web address] Information not available 07/09/2024 How Many Years Have You Consumed Alcohol? 1 Information not available 04/13/2024 Are You Blind Or Do You Have Difficulty Seeing? No Information not available 04/13/2024 What Is Your Level Of Caffeine Consumption? Occasional Information not available 01/20/2024 How Much Tobacco Do You Chew? None Information not available 04/13/2024 In The 14 Days Before Symptom Onset, Have You Had Close Contact With A Laboratory-confir med COVID-19 While That Case Was Ill? No Information not available 01/20/2024 In The 14 Days Before Symptom Onset, Have You Had Close Contact With A Person Who Is Under Investigation For COVID-19 While That Person Was Ill? No Information not available 01/20/2024 Have You Been To An Area Known To Be High Risk For COVID-19? No Information not available 01/20/2024 Are You Deaf Or Do You Have Serious Difficulty Hearing? No Information not available 04/13/2024 What Type Of Diet Are You Following? REGULAR Information not available 04/13/2024 What Is The Highest Grade Or Level Of School You Have Completed Or The Highest Degree You Have Received? 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 No Information not available 04/13/2024 Do You Use Protection During Sex? No Information not available 04/13/2024 Do You Use Your Seat Belt Or Car Seat Routinely? Yes Information not available 04/13/2024 Do You Have Smoke And Carbon Monoxide Detectors In Your Home? Yes Information not available 04/13/2024 At What Age Did You Start Smoking Tobacco? 0 Information not available 04/13/2024 How Much Tobacco Do You Smoke? No Information not available 04/13/2024 Do You Feel Stressed (tense, Restless, Nervous, Or Anxious, Or Unable To Sleep At Night)? [id number] Information not available 08/04/2024 Do You Use Any Illicit Or Recreational Drugs? No Information not available 04/13/2024 Do You Use Sunscreen Routinely? Yes Information not available 04/13/2024 How Many Years Have You Smoked Tobacco? 0 Information not available 04/13/2024 Have You Used IV Drugs? No Information not available 04/13/2024 Sex: Unknown Functional Status Question Answer Note LastModified by Organizat ion Details LastModified Time Do you have difficulty walking or climbing stairs? No [email or web address] Information not available 07/09/2024 Are you able to walk? [email or web address] Information not available 04/13/2024 Are you able to care for yourself? Yes [email or web address] Information not available 07/09/2024 Do you have difficulty dressing or bathing? No [email or web address] Information not available 07/09/2024 What is your exercise level? Occasional Information not available 04/13/2024 Mental Status None recorded. Family History Relationship Description Onset Age of this Age Resolved Age Notes LastModified by Organization Details LastModified Time [email or web address] Not available 2023 13:48:23 Paternal Grandmother Malignant tumor of breast [email or web address] Not available 2023 14:05:10 Paternal Grandfather Diabetes mellitus [email or web address] Not available 2023 13:49:17 Maternal Aunt Polycystic ovary syndrome [email or web address] Not available 10/20 16:36:23 Maternal Grandmother Disorder of thyroid gland [email or web address] Not available 08/25 12:10:06 Maternal Grandfather Hypertensive disorder [email or web address] Not available 08/25 12:10:06 Maternal Grandfather Diabetes mellitus Not available 10/20 16:36:23 Father Disorder of thyroid gland Not available 08/25 12:10:06 Medical History Condition Response Allergies (Food, seasonal, environmental ) N Other N Breast Cancer N Drug/Latex Allergies/Reactions N Blood Transfusion N Dermatologic Disorders N Lung Disease N Defects or Inherited Disease N Breast Problem N Gestational Diabetes N Hematologic disorders N Anesthesia Complications N History of STI N Deep Vein Thrombosis N Polycystic ovary syndrome N Anxiety Disorder N Autoimmune disease N Arthritis N Infertility N Polyps N Acid Reflux (GERD) N History of abnormal pap N Cancer N Stroke N Varicosities N Neurologic/Epilepsy N Endometriosis N High Cholesterol N Headaches N Fibromyalgia N Kidney Disease N Heart Problems N Kidney or Bladder Problems N Thyroid Problems N GI Problems N Eating Disorder N Anemia N Art (IVF or FET) N Psychiatric Illness N Ovarian Cancer N Diabetes N Pulmonary (TB, Asthma) N Hepatitis/Liver Disease N No Past Medical History N Eczema N Urinary Tract Infection N Abuse/Domestic Violence N Asthma N Trauma/Violence N Depression/ depression N Heart Disease N Pre-Eclampsia N Hypertension N Osteoporosis N Thrombophilias N Gynecological History Statement/Question Response Abnormal Pap N Date of Last Mammogram Date of LMP 04/17/2024 N On BCP's at Conception? N STIs/STDs N Was last menstrual period normal Y HPV Vaccine Y Colposcopy Duration of Flow (days) 4 Current Control Method Date of control 01/30/2024 Are cycles usually normal N Date of Last Colonoscopy Sexually Active? Y N/A Menses Monthly Y Date of DEXA bone scan Age of first menstrual cycle 13 Date of Last Pap Smear 04/13/2024 Sexual Problems? N LMP Approximate N Obstetrics History GPAL:G 1 P 0 0 0 0 Type Value Living 0 Total 1 Past Encounters Encounter ID Performer Location Encounter Start Date Encounter Closed Date Diagnosis/Indication Diagnosis SNOMED-CT Code Diagnosis ICD10 Code Diagnosis Note [id number] NAM Sahu [place] [address] [address] 01/20/2024 13:38:11 01/20/2024 14:38:14 Contraception care management 449127409 Z30.9 Discussed all control options in great detail. Pt would like to start ocp. She is aware of the risks and benefits. She does not have any medical condition that is contraindi cated with the use of estrogen containing control. Pt will start her pills on the first day following the start of her period. She is aware it is not effective for control the first month. She is also aware of the importance of taking at the same time every day. Encouraged use of condoms as the pill does not protect against STD's. Will return in 3-4 months for med check. Consent was read and signed. Pt verbalized understand ing.kelly ed STI screenRTC for WWE/med check in 3-4 months (pt opts to defer pap until f/u appointmen t) Time spent in visit is a total of 22 mins with at least 50% of visit consisting of counseling and review of plan of care. Initial pr escription of oral contraception 628647142 Z30.011 [id number] NAM Sahu [address],[place] [address] 04/13/2024 16:17:42 04/14/2024 11:09:35 Screening procedure 22740146 Z13.9 Gynecologi c examination 66839831 Z01.419 Z11.3 Z11.8 WWEpap updateddec lined STI screenrout ine labs/PCP It is strongly advised to have an annual flu shot and up can obtain at most pharmacies . If you have not had a TDap shot in the last 10 years you should obtain one as well.Discu ssed with patient & provided with informatio n regarding HPV vaccine if applicable . Encourage safe sexual practices, to use condoms and limit partners if not already in a monogamous relationsh ip.Do monthly self breast exams. BRCA testing is now available for patients with strong genetic history of female cancer. If interested contact the office.Eng age in regular exercise. Avoid tobacco and illicit drugs. This lifestyle behavior pattern will lead to less health conditions and longer life span. If BMI greater than 25 dietary consult advised. Patient received above instructio ns, and questions have been answered. If you have any questions please call or respond to this email. Patient was made aware of the patient portal and may obtain a paper copy of today's plan if desired. [facility] ion care management [id number] Z30.9 All BC options discussedo pts to switch to nextstelli srx sent, r/b/a reviewedre cords requested from recent pelvic u/s at [facility] d check in 3-4 months [id number] Regina Rodríguez [place] [address],[place] [address] 07/09/2024 13:55:23 07/19/2024 14:54:37 Uterine size for dates discrepancy [id number] O26.849 [id number] Rebecca Romero CNM [place] [address],[place] [address] 07/09/2024 13:57:09 07/12/2024 07:47:10 [id number] Sonia Jordan [place] [address],[place] [address] 08/02/2024 16:26:08 08/02/2024 16:57:01 [id number] Rebecca Romero [facility] [address],[place] [address] 08/04/2024 16:31:47 08/05/2024 10:28:26 Nausea and vomiting 57580781 R11.2 Amenorrhea 22001064 N91. 2 reviewed precaution s and educationo k for flu/covid vaccinesed c 03/07/25, continue vitamin dailypap up to date [id number] [facility] [address],[place] [address] 08/24/2024 12:14:52 08/24/2024 13:12:57 screening 107111227 Z36.82 Z3A.12 [id number] Rebecca Romero [place] [address],[place] [address] 08/25/2024 11:55:57 08/25/2024 12:52:32 Routine care 036782380 Z34.90 Gestation period, 12 weeks 09000881 Z3A.12 Dizziness 046340043 R42 [id number] [facility] [address] [place] [address] 09/22/2024 11:16:38 09/22/2024 12:09:53 Abdominal pain in 366311437 O99.891 Z3A.16 [id number] Rebecca Romero [facility] [address] [place] [address] 09/22/2024 11:17:59 09/22/2024 14:00:37 Gestation period, 16 weeks 01095617 Z3A.16 [id number] Rebecca Romero [facility] [address] [place] [address] 10/20/2024 14:36:08 10/20/2024 17:06:53 Gestation period, 20 weeks 14209857 Z3A.20 [id number] [facility] [address] [place] [address] 10/20/2024 14:46:47 10/20/2024 16:21:14 screening for malformation 666937660 Z36.3 Z3A.20 Health Concerns Section Related Observation LastModified by Organization Detai ls LastModified Time None Recorded Concern Status LastModified by Organization Details LastModified Time None Recorded Advance Directives Directive None Recorded Payers Encounter Date Sequence Insurance Name Policy Number Policy Blanc Covered Member ID Blanc Member ID Guarantor Name 08/25/2024 1 [employer] (PPO) [address] [id number] Stalin Livingstongwendolyn 09/22/2024 1 [employer]NA[employer] (PPO) 2001 Sherwin Marshall [id number] Stalin Livingstongwendolyn 09/22/2024 1 [employer]NAGEMENT (PPO) 2001 Sherwin Marshall [id number] Stalin Livingstongwendolyn 10/20/2024 1 [employer]NAGEMENT (PPO) 2001 Sherwin Marshall [id number] Stalin Livingstongwendolyn 10/20/2024 1 [employer]NAG[employer] (PPO) [address] Marshall [id number] Stalin Livingstongwendolyn OBGyn Episode Ob Episode Information Episode Created Date Number of Fetuses Patient Bloodtype Patient rh Status Prepregnancy Weight lbs Domestic Partner Domestic Partner Phone Father Name 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 Status 08/25/20 24 1 230 Jarrod Downey OPEN Fetus Data First Name Last Name Admitted to NICU Weight (g) Sex Living Outcome Pediatric Complications Fetus ID Race Codes Race Delivery Type [id number] Problems Problem Notes ovarian cyst Problem Name Start Date End Date Resolution Snomed Code Not e Primigravida [id number] bASA COVID-19 11/01/2024 090539427 bASA and serial growth Obesity 786484689 bmi 37-ant enatal testing Sven Calculation Initial Sven Date Initial Exam Date Initial Exam Provider Initial Ultrasound Date Last Menstrual Period Date Ultra Sound Weeks Gestation 03/05/2025 08/02/2024 Rebecca Romero 07/09/2024 04/17/2024 5 Eighteen To Twenty Week Sven Update Ultra Sound Date Fundal Height At Umbil Quickening Date Ultra Sound Latest Weeks Gestation Final Sven Confirmed By Final Sven Confirmed Date Final Sven Date Ultra Sound Latest Days Gestation 0 0 Pre-kaitlin Flowsheet Flowsheet Date 08/25/2024 Shipley Score Blood Edema Fundus Height Fundus Units Glucose Ketones Leukocytes Nitrite Labor Signs Protein Cervic Dilation Cervic Effacement Cervic Station neg trace none trace Type Weight in lbs Pre/Post Dialysis Refused Weight 225.602161994860 BP Diastolic BP Location Tested BP Systolic BP Type 76 122 Fetus Heart Rate Present Fetus Movement A No Comments Patient is having some nause a. has brett chau for scop patch, reviewed US, cyst ED precautions, start routine care Flowsheet Date 09/22/2024 Shipley Score Blood Edema Fundus Height Fundus Units Glucose Ketones Leukocytes Nitrite Labor Signs Protein Cervic Dilation Cervic Effacement Cervic Station Type Weight in lbs Pre/Post Dialysis Refused BP Diastolic BP Location Tested BP Systolic BP Type Fetus Heart Rate Present Fetus Movement Comments Flowsheet Date 09/22/2024 Shipley Score Blood Edema Fundus Height Fundus Units Glucose Ketones Leukocytes Nitrite Labor Signs Protein Cervic Dilation Cervic Effacement Cervic Station none Type Weight in lbs Pre/Post Dialysis Refused 225.007075986828 BP Diastolic BP Location Tested BP Systolic BP Type 77 115 Fetus Heart Rate Present Fetus Movement A No Comments Patient is having some nause a and pressure. reviewed us, reviewed ovarian cysts, f/u 4 weeks, precautions and education Flowsheet Date 10/20/2024 Shipley Score Blood Edema Fundus Height Fundus Units Glucose Ketones Leukocytes Nitrite Labor Signs Protein Cervic Dilation Cervic Effacement Cervic Station Type Weight in lbs Pre/Post Dialysis Refused BP Diastolic BP Location Tested BP Systolic BP Type Fetus Heart Rate Present Fetus Movement Comments Flowsheet Date 10/20/2024 Shipley Score Blood Edema Fundus Height Fundus Units Glucose Ketones Leukocytes Nitrite Labor Signs Protein Cervic Dilation Cervic Effacement Cervic Station none neg Type Weight in lbs Pre/Post Dialysis Refused 228.177007776453 BP Diastolic BP Location Tested BP Systolic BP Type 80 117 Fetus Heart Rate Present Fetus Movement A Yes Comments reviewed precautions and edu cation, +FM, had covid week ago or so start bASA and q 4 week US, discussed labor, low intervention. will find out gender next week! anatomy incomplete Menstrual History Last Menstrual Date Menses Monthly On Bcp Conception Prior Menses Frequency Hcg Plus Date Menarche Onset Age 0704/17/20[birth year] Delivery Information Delivery Date Delivery Type Labor Anesthesia Weeks Gestation Incision Type Labor Labor Length Hrs Delivered By Post Complications Tubal Sterilization Discharge Date Comments Discharge Information Feeding Method Contraceptive Method Maternal HG B and HCT Levels
--- OUTSIDE RECORDS SUMMARY | 2024-11-04 20:47 | XMS_ITS | CONTINUITY OF CARE DOCUMENT ---
Author Name alda lizama Address Unknown Organization [facility] Address [address] [place] [address] [address] [place] [address] Phone [phone] Care Team Providers Care Back Feeder [employer] Layup Line Name Role Phone Sugey Williamson MD Unavailable KRYSTIN CELIS MD Unavailable [phone] INSURANCE PROVIDERS Payer name Policy type / Coverage type [employer] party ID [facility] [facility] Medicaid 1 [id number]
== END 2024-11-02 23:59 | disposition home or self-care (01) ==
PROVIDERS: Emergency Provider Emergency Medicine; PCP Nurse Practitioner Family
DX: O36.8120 Decreased fetal movements, second trimester, not applicable or unspecified (principal); Z3A.00 Weeks of gestation of pregnancy not specified; O98.512 Other viral diseases complicating pregnancy, second trimester; U07.1 COVID-19
CPT/HCPCS: 99282

== ENCOUNTER 2025-02-01 19:33 | Outpatient (RCR) | payer MEDICAID, SELFPAY ==
[2025-02-01 20:31] VITALS: BP 122/77; PULSE 102
== END 2025-03-07 08:32 | disposition home or self-care (01) ==
LOC: ANHOBOP 19:33
PROVIDERS: PCP Nurse Practitioner Family; Visit Provider Obstetrics & Gynecology
DX: O36.8130 Decreased fetal movements, third trimester, not applicable or unspecified (principal); Z3A.35 35 weeks gestation of pregnancy
CPT/HCPCS: 59025

== ENCOUNTER 2025-02-10 00:31 | Observation (INO) | payer MEDICAID, SELFPAY ==
[2025-02-10 00:44] VITALS: TEMP 36.6
[2025-02-10 01:16] VITALS: BP 115/72; PULSE 93
--- OUTSIDE RECORDS SUMMARY | 2025-02-10 01:17 | XMS_ITS | Data Portability ---
Author Organization [facility] Address [address] [place] [address] Care Team Providers Care Fancy Needleworker Name Role Phone LUCIA KINCAID Primary Care Provider Assessment Encounter Date Assessment Date Assessment LastModified by Organization Details LastModified Time 12/29/2024 12/29/2024 Patient is _30__weeks . Discussed plan. [email or web address] Not available 12/29/2024 14:45:42 01/14/2025 01/14/2025 Patient is 32___weeks . Discussed plan. [email or web address] Not available 01/14/2025 12:26:38 02/03/2025 02/03/2025 Patient is ___weeks . Discussed plan. [email or web address] Not available 02/03/2025 16:44:07 02/09/2025 02/09/2025 Patient is __36_weeks . Discussed plan. [email or web address] Not available 02/09/2025 13:45:55 Plan of Treatment Reminders Order Date Submit Date Provider Last Modified By Organization Details Last Modified Time Details Appointments U/S OB GROWTH 2024 01:30P M ULTRASOUND Not available Not available Not available NST 2024 02:00P M NST SCHEDULE Not available Not available Not available OB ROUTINE 2024 02:30P M Rebecca Romero CNM Not available Not available Not available U/S OB BPP 2024 01:30P M ULTRASOUND Not available Not available Not available NST 2024 02:00P M NST SCHEDULE Not available Not available Not available OB ROUTINE 2024 02:30P M Rebecca Romero, CNM Not available Not available Not available U/S OB BPP 2024 01:30P M ULTRASOUND Not available Not available Not available NST 2024 02:00P M NST SCHEDULE Not available Not available Not available OB ROUTINE 2024 02:30P M Rebecca Romero, CNM Not available Not available Not available Lab strepto coccus group B, culture , unspeci fied specime n 2024 025 [facility] (Lab), [address], [place], [address], 02/09/2025 12:46:39 Referral None recorde d. Procedures None recorde d. Surgeries None recorde d. Imaging US, obstetr ic, follow- up 2024 025 [email or web address] [place], [facility] [address], [place], [address], 01/13/2025 19:16:44 Medication Orders None recorde d. Patient TargetsNo targets recorded. Patient InstructionsNo instructions recorded. Reason for Referral None Reported. Results Created Date Observation Date Name Description Value Unit Range Abnormal Flag Note LastModifiedBy Organization Detail LastModifiedTime 12/16/19 25 12/15/2024 HEMAT OCRIT (HCT) HCT 36.1 % (based on docume nted legal sex) 34.0-4 5.0 Not Available [facility] (Lab) [address], [place], [address], 12/16/2024 13:43:25 12/16/19 25 12/15/2024 HEMOG LOBIN (HGB) HGB 11.8 g/dL (based on docume nted legal sex) 11.6-1 5.4 Not Available [facility] (Lab) [address], [place], [address], 12/16/2024 13:43:25 12/16/19 25 12/15/2024 HIV 1/2 ANTIG EN/AN TIBOD Y, REFLE X CONFI RMATI ON HIV antigen/anti body Nonrea ctive nonrea ctive HIV-1 antig en and HIV-1 /HIV- 2 antib odies were not detec brandie. No labor atory evide nce of HIV infec tion. Not Available [facility] (Lab) [address], [place], [address], 12/16/2024 13:43:26 12/16/19 25 12/15/2024 GTT - GESTA HE L SCREE N, ACOG OB glucose, 1 hour screen 92 mg/dL 70-135 Not Available [facility] (Lab) [address], [place], [address], 12/16/2024 13:43:26 12/16/19 25 12/15/2024 RPR SCREE N, REFLE X TITER /CONF IRMAT ION RPR qualitative Nonrea ctive nonrea ctive Not Available [facility] (Lab) [address], [place], [address], 12/16/2024 13:43:26 12/09/19 25 12/09/2024 US, obste tric, follo w-up No observ ation record ed. [email or web address] [place] [address], [place], [address], 12/09/2024 18:36:53 12/09/19 25 12/09/2024 US, obste tric, follo w-up No observ ation record ed. [email or web address] [address], [place], [address], 12/14/2024 09:29:45 01/14/20 25 01/13/2025 US, obste tric, follo w-up No observ ation record ed. [email or web address] [place] [address], [place], [address], 01/13/2025 17:08:49 01/14/20 25 01/13/2025 US, obste tric, follo w-up No observ ation record ed. [email or web address] [address], [place], [address], 01/18/2025 19:15:16 02/02/20 25 02/01/2025 non-s tress test No observ ation record ed. [email or web address], [place], [address], 02/02/2025 11:28:53 Result Notes None recorded. Problems Name Problem SNOMED Code Status Onset Date Resolution Date Notes Provider Name and Address Organization Details Recorded Time 96345760 Active 2023 Lexie latham, [facility] 4 12:10:37 Obesity 617375540 Active bmi 37-anten atal testing Rebecca Romero CNM [address], [place], [address], [facility] 4 12:35:08 Primigravi da 294991230 Active bASA Rebecca Romero CNM [address], [place], [address], [facility] 4 12:36:02 COVID-19 808455164 Active 2024 bASA and serial growth Angelica latham, [facility] 5 15:23:56 COVID-19 961135788 Active 2024 bASA and serial growth Angelica latham, [facility] 5 15:23:56 Problem Notes None recorded. Procedures Surgical History Date Name Laterality Status Provider Name and Address Organization Details Recorded Time 04/13/20 24 Date of Last Pap Smear completed Lexie Olivo [facility] 07/08/2024 13:18:31 10/13/19 09 tonsilectomy/adeno ids completed Lexie Olivo [facility] 08/04/2024 16:59:33 10/13/19 07 adenomyomectomy completed Lexie Olivo [facility] 08/04/2024 16:59:28 Imaging Results Imaging Date Name Status LastModified by Organiz ation Details LastModified Time 12/09/2024 US, obstetric, follow-up completed [email or web address] [place] [address], [place], [address], 12/09/2024 18:36:53 12/09/2024 US, obstetric, follow-up completed [email or web address] [address], [place], [address], 12/14/2024 09:29:45 01/13/2025 US, obstetric, follow-up completed [email or web address] [place] [address], [place], [address], 01/13/2025 17:08:49 01/13/2025 US, obstetric, follow-up completed [email or web address] [address], [place], [address], 01/18/2025 19:15:16 02/01/2025 non-stress test completed [address], [place], [address], 02/02/2025 11:28:53 Procedure Notes None recorded. Medical Equipment None [...] completed Not Available Not Available Not Available Mapap (acetaminop hen) 500 mg capsule TAKE 2 CAPSULES (1000 MG) BY MOUTH EVERY 6 HOURS NEEDED FOR PAIN 02/09 completed Not Available Not Available Not Available oseltamivir 75 mg capsule TAKE 1 CAPSULE (75 MG) BY MOUTH TWICE A DAY 02/09 completed Not Available Not Available Not Available scopolamine 1 mg over 3 days transdermal patch APPLY 1 PATCH BY TRANSDERM AL ROUTE FOR 3 DAYS. 12/29 completed Not Available Not Available Not Available albuterol sulfate HFA 90 mcg/actuati on aerosol inhaler INHALE 2 PUFFS BY MOUTH EVERY 4 HOURS NEEDED 01/19 completed Not Available Not Available Not Available ondansetron 4 mg disintegrat ing tablet DISSOLVE 1 TABLET ON THE TONGUE EVERY 6 HOURS 12/29 completed Not Available Not Available Not Available azithromyci n 500 mg tablet TAKE 1 TAB (500 MG) BY MOUTH DAILY FOR 4 DAYS. START DAY 2 OF THERAPY (01/07/25) . 01/14 completed Not Available Not Available Not Available Vitafol Ultra 29 mg iron-1 mg-200 [...] Available Not Available Vitals Date Recorded Body weight Body mass index (BMI) Body height Systolic blood pressure Diastolic blood pressure Provider Name and Address Organization Details Last Updated DateTime 12/29/2024 335228.4 2984 g 36.3 kg/m2 170.18 cm 116 mm[Hg] 73 mm[Hg] Lexie Olivo [facility] 14:24:46 Date Recorded Body height Body mass index (BMI) Body weight Systolic blood pressure Diastolic blood pressure Provider Name and Address Organization Details Last Updated DateTime 01/14/2025 170.18 cm 36.5 kg/m2 892348.0 2 g 96 mm[Hg] 64 mm[Hg] Lexie Olivo [facility] 12:18:47 Date Recorded Body height Body mass index (BMI) Body weight Systolic blood pressure Diastolic blood pressure Provider Name and Address Organization Details Last Updated DateTime 02/03/2025 170.18 cm 37.1 kg/m2 266621.3 9 g 118 mm[Hg] 76 mm[Hg] Marlin Aj [facility] 16:45:09 Date Recorded Body height Body mass index (BMI) Body weight Systolic blood pressure Diastolic blood pressure Provider Name and Address Organization Details Last Updated DateTime 02/09/2025 170.18 cm 37 kg/m2 949791.8 g 110 mm[Hg] 74 mm[Hg] Lexie Olivo [facility] 12:44:03 Social History Question Answer Notes LastModified by Organizat ion Details LastModified Time Tobacco Smoking Status Never Smoker Lena latham, [facility] 01/20/2024 13:45:36 What Is Your Level Of Alcohol Consumption? None [email or web address] Information not available 07/09/2024 If You Are , What Was Your Level Of Alcohol Consumption Prior To ? Occasional [email or web address] Information not available 07/09/2024 How Many Years [...] Or The Highest Degree You Have Received? 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 [id number] [email or web address] Information not available 08/04/2024 Do You Use [...] have difficulty walking or climbing stairs? No [email or web address] Information not available 07/09/2024 Are you able to walk? YESWOREST Information not available 04/13/2024 Are you able to care for yourself? Yes [email or web address] Information not available 07/09/2024 Do you have difficulty dressing or bathing? No Information not available 07/09/2024 What is your exercise level? Occasional Information not available 04/13/2024 Mental Status None recorded. Family History Relationship Description Onset Age of this Age Resolved Age Notes LastModified by Organization Details LastModified Time [facility]pertensive [email or web address] Not available 2023 13:48:23 Paternal Grandmother Malignant tumor of breast [email or web address] Not available 2023 14:05:10 Paternal Grandfather Diabetes mellitus [email or web address] Not available 2023 13:49:17 Maternal Aunt Polycystic ovary syndrome [email or web address] Not available 2024 12:03:59 Maternal Grandmother Disorder of thyroid gland [email or web address] Not available 08/25 12:10:06 Maternal Grandfather Hypertensive disorder [email or web address] Not available 08/25 12:10:06 Maternal Grandfather Diabetes mellitus [email or web address] Not available 10/20 16:36:23 Father Disorder of thyroid gland [email or web address] Not available 08/25 12:10:06 Medical History Condition Response Allergies (Food, seasonal, environmental ) N Other N Breast Cancer N Drug/Latex Allergies/Reactions N Blood Transfusion N Lung Disease N Dermatologic Disorders N Defects or Inherited Disease N Breast [...] SNOMED-CT Code Diagnosis ICD10 Code Diagnosis Note [id number] NAM Sahu [place] [address] [address] 01/20/2024 13:38:11 01/20/2024 14:38:14 Contraception care management 078971438 Z30.9 Discussed all control options in great [...] was read and signed. Pt verbalized understand ingan ed STI screenRTC for WWE/med check in 3-4 months (pt opts to defer pap until f/u appointmen t) Time spent in visit is a total of 22 mins with at least 50% of visit consisting of counseling and review of plan of care. Initial pr escription of oral contraception 671213292 Z30.011 [id number] NAM Sahu [place] [address] [address] 04/13/2024 16:17:42 04/14/2024 11:09:35 Screening procedure 55407636 Z13.9 Gynecologi c examination 48558678 Z01.419 Z11.3 Z11.8 WWEpap updateddec lined STI [...] [facility] ion care management 232168997 Z30.9 All BC options discussedo pts to switch to nextstelli srx sent, r/b/a reviewedre cords requested from recent pelvic u/s at [facility] d check in 3-4 months [id number] Jaden Collier MD [place] [address],[place] [address] 07/09/2024 13:55:23 07/19/2024 14:54:37 Uterine size for dates discrepancy 768007977 O26.849 [id number] Rebecca Romero [facility] [address] [place] [address] 07/09/2024 13:57:09 07/12/2024 07:47:10 [id number] Jaden Collier MD [place] [address] [place] [address] 08/02/2024 16:26:08 08/02/2024 16:57:01 [id number] Rebecca Romero [facility] [address] [place] [address] 08/04/2024 16:31:47 08/05/2024 10:28:26 Nausea and vomiting 60892382 R11.2 Amenorrhea 01615409 N91. 2 reviewed precaution s and educationo k for flu/covid vaccinesed c 03/07/25, continue vitamin dailypap up to date [id number] Jaden Collier MD [place] [address] [address] 08/24/2024 12:14:52 08/24/2024 13:12:57 screening 457412294 Z36.82 Z3A.12 [id number] Rebecca Romero [facility] [address] [address] 08/25/2024 11:55:57 08/25/2024 12:52:32 Routine care 478240932 Z34.90 Gestation period, 12 weeks 57135251 Z3A.12 [facility] 565029531 R42 [id number] Jaden Collier MD [place] [address],[place] [address] 09/22/2024 11:16:38 09/22/2024 12:09:53 Abdominal pain in 442871387 O99.891 Z3A.16 [id number] Rebecca Romero [facility] [address] [address] 09/22/2024 11:17:59 09/22/2024 14:00:37 Gestation period, 16 weeks 93573531 Z3A.16 [id number] Rebecca Romero [facility] [address],[place] [address] 10/20/2024 14:36:08 10/20/2024 17:06:53 Gestation period, 20 weeks 42852479 Z3A.20 [id number] Jaden Collier MD [place] [address] [address] 10/20/2024 14:46:47 10/20/2024 16:21:14 screening for malformation 580547688 Z36.3 Z3A.20 [id number] MD Ronny Husain [address],[place] [address] 11/18/2024 11:44:24 11/18/2024 14:35:28 screening 526617268 Z36.2 Z3A.24 [id number] Rebecca Romero [facility] [address],[place] [address] 11/24/2024 14:31:12 11/24/2024 14:59:33 Gestation period, 25 weeks 33658126 Z3A.25 [id number] Jaden Collier MD [place] [address],[place] [address] 12/09/2024 14:48:54 12/09/2024 15:54:01 condition affecting obstetrical care of mother 160936611 O35.3XX0 Z3A.27 [id number] Rebecca Romero [facility] [address],[place] [address] 12/15/2024 15:30:06 12/15/2024 16:02:07 Gestation period, 28 weeks 06527523 Z3A.28 [id number] Rebecca Romero [facility] [address],[place] [address] 12/29/2024 14:07:57 12/29/2024 14:50:54 Gestation period, 30 weeks 31527166 Z3A.30 [id number] Jaden Collier MD [place] [address] [address] 01/13/2025 13:43:36 01/13/2025 14:17:25 History of SARS-CoV-2 1529788344 03326619 Z86.16 Z3A.32 [id number] Rebecca Romero [facility] [address] [address] 01/14/2025 11:53:24 01/14/2025 12:49:55 Gestation period, 32 weeks 1575716 Z3A.32 [id number] Jaden Collier MD [place] [address],[place] [address] 02/03/2025 15:22:36 02/04/2025 09:05:56 Third trimester 58899637 Z34.03 [id number] Rebecca Romero CNM [place] [address] [address] 02/09/2025 12:03:00 02/09/2025 13:53:29 screening 937392077 Z36.85 Gestation period, 36 weeks 69881391 Z3A.36 Health Concerns Section Related Observation LastModified by Organization Detai ls LastModified Time None Recorded Concern Status LastModified by Organization Details LastModified Time None Recorded Advance Directives Directive None Recorded Payers Encounter Date Sequence Insurance Name Policy Number Policy Blanc Covered Member ID Blanc Member ID Guarantor Name 12/29/2024 1 [employer]NAGEMENT (PPO) [address] [id number] Stalin Downey 12/29/2024 1 [place] [facility] Stalin Downey [id number] Stalin Downey 01/13/2025 1 [employer]AN [employer]NAGEMENT (PPO) [address] [id number] Stalin Downey 01/13/2025 1 [place] [facility] Stalin Downey [id number] Stalin Carterell 01/14/2025 1 [employer] MANAGEMENT (PPO) [address] [id number] Stalin Downey 01/14/2025 1 [place] [facility] Stalin Downey [id number] Stalin Downey 02/03/2025 1 [place] [employer] [facility] Stalin Downey [id number] Stalin Downey 02/09/2025 1 [place] [facility] Stalin Downey [id number] Stalin Downey OBGyn Episode Ob Episode Information Episode Created Date Number of Fetuses Patient Bloodtype Patient rh Status Prepregnancy Weight lbs Domestic Partner Domestic Partner Phone Father Name Technical Services Coordinator Status 08/25/20 24 1 B Positive 230 Jarrod Downey OPEN Fetus Data First Name Last Name Admitted to NICU Weight (g) Sex Living Outcome Pediatric Complications Fetus ID Race Codes Race Delivery Type [id number] Problems Problem Notes ovarian cyst Problem Name Start Date End Date Resolution Snomed Code Not e Primigravida 766354699 bASA COVID-19 11/01/2024 415707626 bASA and serial growth Obesity 159096557 bmi 37-ant enatal testing Sven Calculation Initial [...] Ultra Sound Latest Days Gestation 0 0 Pre- Flowsheet Flowsheet Date 08/25/2024 Shipley Score Blood Edema Fundus Height Fundus Units Glucose Ketones Leukocytes Nitrite Labor Signs Protein Cervic Dilation Cervic Effacement Cervic Station neg trace none trace Type Weight in lbs Pre/Post Dialysis Refused Weight 225.334561114262 BP Diastolic BP Location Tested BP Systolic [...] Type Weight in lbs Pre/Post Dialysis Refused 225.116559006364 BP Diastolic BP Location Tested BP Systolic [...] Type Weight in lbs Pre/Post Dialysis Refused 228.482610469486 BP Diastolic BP Location Tested BP Systolic BP Type 80 117 Fetus Heart Rate Present Fetus Movement A Yes Comments reviewed precautions and edu cation, +FM, had covid week ago or so start bASA and q 4 week US, discussed labor, low intervention. will find out gender next week! anatomy incomplete Flowsheet Date 11/18/2024 Shipley Score Blood Edema Fundus Height Fundus Units Glucose Ketones Leukocytes Nitrite Labor Signs Protein Cervic Dilation Cervic Effacement Cervic Station Type Weight in lbs Pre/Post Dialysis Refused BP Diastolic BP Location Tested BP Systolic BP Type Fetus Heart Rate Present Fetus Movement Comments Flowsheet Date 11/24/2024 Shipley Score Blood Edema Fundus Height Fundus Units Glucose Ketones Leukocytes Nitrite Labor Signs Protein Cervic Dilation Cervic Effacement Cervic Station neg none Type Weight in lbs Pre/Post Dialysis Refused 233.185650488195 BP Diastolic BP Location Tested BP Systolic BP Type 68 115 Fetus Heart Rate Present Fetus Movement A Yes Comments Flowsheet Date 12/09/2024 Shipley Score Blood Edema Fundus Height Fundus Units Glucose Ketones Leukocytes Nitrite Labor Signs Protein Cervic Dilation Cervic Effacement Cervic Station Type Weight in lbs Pre/Post Dialysis Refused BP Diastolic BP Location Tested BP Systolic BP Type Fetus Heart Rate Present Fetus Movement Comments Flowsheet Date 12/15/2024 Shipley Score Blood Edema Fundus Height Fundus Units Glucose Ketones Leukocytes Nitrite Labor Signs Protein Cervic Dilation Cervic Effacement Cervic Station neg none Type Weight in lbs Pre/Post Dialysis Refused 232.64952389759 BP Diastolic BP Location Tested BP Systolic BP Type 77 129 Fetus Heart Rate Present Fetus Movement A Yes Comments doing well ! +FM, girl! GCT today, precautions and education, planning tdap unsure about rsv Flowsheet Date 12/29/2024 Shipley Score Blood Edema Fundus Height Fundus Units Glucose Ketones Leukocytes Nitrite Labor Signs Protein Cervic Dilation Cervic Effacement Cervic Station Type Weight in lbs Pre/Post Dialysis Refused 232.10009440066 BP Diastolic BP Location Tested BP Systolic BP Type 73 116 Fetus Heart Rate Present Fetus Movement A Yes Comments +FM doing well, will see dr gonazlez for peds, will discuss rsv and preadmit at next visit, discussed kick counts precautions reviewed f/u 2 weeks Flowsheet Date 01/13/2025 Shipley Score Blood Edema Fundus Height Fundus Units Glucose Ketones Leukocytes Nitrite Labor Signs Protein Cervic Dilation Cervic Effacement Cervic Station Type Weight in lbs Pre/Post Dialysis Refused BP Diastolic BP Location Tested BP Systolic BP Type Fetus Heart Rate Present Fetus Movement Comments Flowsheet Date 01/14/2025 Shipley Score Blood Edema Fundus Height Fundus Units Glucose Ketones Leukocytes Nitrite Labor Signs Protein Cervic Dilation Cervic Effacement Cervic Station neg none Type Weight in lbs Pre/Post Dialysis Refused Weight 233.503726248275 BP Diastolic BP Location Tested BP Systolic BP Type 64 96 Fetus Heart Rate Present Fetus Movement A Yes Comments Patient states that is havin g upper abdominal numbness. discussed precautions, education, +FM, reviewed US Flowsheet Date 02/03/2025 Shipley Score Blood Edema Fundus Height Fundus Units Glucose Ketones Leukocytes Nitrite Labor Signs Protein Cervic Dilation Cervic Effacement Cervic Station Type Weight in lbs Pre/Post Dialysis Refused Weight 237.6917088663 BP Diastolic BP Location Tested BP Systolic BP Type 76 L arm 118 sitting Fetus Heart Rate Present A 156 Present Fetus Movement A Yes Comments no complaints, no problems, routine care, no contractions, no vaginal bleeding, no loss of fluid, no cramping Flowsheet Date 02/09/2025 Shipley Score Blood Edema Fundus Height Fundus Units Glucose Ketones Leukocytes Nitrite Labor Signs Protein Cervic Dilation Cervic Effacement Cervic Station neg none Type Weight in lbs Pre/Post Dialysis Refused Weight 236.778638892716 BP Diastolic BP Location Tested BP Systolic BP Type 74 110 Fetus Heart Rate Present A 155 Present Fetus Movement A Yes Comments Patient is having cramping a nd discharge. reviewed precautions, education, testing next week +FM, f/u one week Menstrual History Last Menstrual Date Menses Monthly [...]
--- OUTSIDE RECORDS SUMMARY | 2025-02-10 01:17 | XMS_ITS | Clinical Summary ---
Author Organization [facility] Address [address] [place] [address] Care Team Providers Care Aerial Hurricane Hunter Name Role Phone Maia Gayle MD Primary Care Provider [phone] Source Comments [facility] Affiliates and Associated Physician Practices is amultiple site organization consisting of ambulatory clinics and hospital sitesin [place], [place] and [place]. This disclosure is being madepursuant to the Care Everywhere program and may not contain all information available regarding this patient. Last updated 18.[facility] ams [facility] Allergies No known active allergies Medications * Be aware that medications may not be up to date on this document. Alwaysverify current medications with the patient. 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 Gender Identity Not on file Sexual Orientation Not on file Last Filed Vital Signs Vital Sign Reading Time Taken Comments Blood Pressure 118/65 03/08/2012 8:15 AM CDT Pulse 110 03/08/2012 8:15 AM CDT Temperature 37.1 C (98.8 F) 03/08/2012 8:15 AM CDT Respiratory Rate 22 03/08/2012 8:15 AM CDT Oxygen Saturation 100% 03/07/2012 11:36 PM CDT Inhaled Oxygen Concentration - - Weight 61 kg (134 lb 7.7 oz) 03/07/2012 7:46 PM CDT Height - - Body Mass Index - - Plan of Treatment Health Maintenance Due Date Last Done Comments HIV SCREENING 2016 HPV VACCINE (1 - 3-dose series) 2016 CHLAMYDIA/GONORRHEA SCREENING 2017 MENINGOCOCCAL (Group B) VACC INE SHARED DECISION-MAKING (1 of 2 - Standard) 2017 HEPATITIS C SCREENING 03/10/2019 DTAP/TDAP/TD VACCINES (1 - Tdap) 2020 HEPATITIS B VACCINE (1 of 3 - 19+ 3-dose series) 2020 COVID-19 VACCINE (1 - 2023-2 5 season) 2024 DEPRESSION SCREENING 10/13/2024 INFLUENZA VACCINE (Season Ended) 2025 ZOSTER VACCINE (1 of 2) 2051 HIB VACCINE Aged Out No longer eligi ble based on patient's age to complete this topic MENINGOCOCCAL GROUPS A/C/Y/W VACCINE Aged Out No longer eligible b ased on patient's age to complete this topic PNEUMOCOCCAL VACCINE Aged Out No long er eligible based on patient's age to complete this topic Insurance MEDICAID - [place] Care Teams Aerial Hurricane Hunter Relationship Specialty Start Date End Date Maia Gayle MD [address] [place] [address] PCP - General 03/07/12
--- OUTSIDE RECORDS SUMMARY | 2025-02-10 01:17 | XMS_ITS | CONTINUITY OF CARE DOCUMENT ---
Author Name alda lizama Address Unknown Organization [facility] Address [id number] [place] [address] [address] [place] [address] Phone [phone] Care Team Providers Care Internal Affairs Investigator Name Role Phone Sugey Williamson MD Unavailable KRYSTIN CELIS MD Unavailable [phone] INSURANCE PROVIDERS Payer name Policy type / Coverage type [place] red green party ID [facility] [facility] Medicaid 1 [id number]
--- OUTSIDE RECORDS SUMMARY | 2025-02-10 01:17 | XMS_ITS | Continuity of Care Document ---
Author Organization [facility] Address [address] [place] [address] Care Team Providers Care Multimedia Author Name Role Phone LUCIA KINCAID Primary Care Provider [phone] Assessment Encounter Date Assessment Date Assessment LastModified by Organization Details LastModified Time 02/09/2025 02/09/2025 Patient is __36_weeks . Discussed plan. Not available 02/09/2025 13:45:55 Plan of Treatment Reminders Order Date Submit Date Provider Last Modified By Organization Details Last Modified Time Details Appointments U/S OB GROWTH 2024 01:30P M ULTRASOUND Not available Not available Not available NST 2024 02:00P M NST SCHEDULE Not available Not available Not available OB ROUTINE 2024 02:30P M FORTUNATO ArnettM Not available Not available Not available U/S OB BPP 2024 01:30P M ULTRASOUND Not available Not available Not available NST 2024 02:00P M NST SCHEDULE Not available Not available Not available OB ROUTINE 2024 02:30P M FORTUNATO ArnettM Not available Not available Not available U/S OB BPP 2024 01:30P M ULTRASOUND Not available Not available Not available NST 2024 02:00P M NST SCHEDULE Not available Not available Not available OB ROUTINE 2024 02:30P M FORTUNATO ArnettM Not available Not available Not available Lab strepto coccus group B, culture , unspeci fied specime n 2024 025 [facility] (Lab), [address], [place], [address], 02/09/2025 12:46:39 Referral None recorde d. Procedures None recorde d. Surgeries None recorde d. Imaging None recorde d. Medication Orders None recorde d. Patient TargetsNo targets recorded. Patient InstructionsNo instructions recorded. Reason for Referral None Reported. Results Created Date Observation Date Name Description Value Unit Range Abnormal Flag Note LastModifiedBy Organization Detail LastModifiedTime 09/22/20 24 09/22/2024 US, obste tric, limit ed No observ ation record ed. [facility] [address], [place], [address], 09/22/2024 13:11:40 09/22/20 24 09/22/2024 US, obste tric, follo w-up No observ ation record ed. [email or web address] [facility] [address], [place], [address], 09/23/2024 09:28:47 10/20/19 25 10/20/2024 US, obste tric, 2nd or 3rd trime ster No observ ation record ed. [email or web address] [facility] [address], [place], [address], 10/20/2024 18:08:06 10/20/19 25 10/20/2024 US, obste tric, follo w-up No observ ation record ed. [email or web address] [address], [place], [address], 10/22/2024 17:43:31 11/18/19 25 11/18/2024 US, obste tric, follo w-up No observ ation record ed. [email or web address] [address], [place], [address], 12/01/2024 19:09:36 11/18/19 25 11/18/2024 US, obste tric, follo w-up No observ ation record ed. [email or web address] [facility] [address], [place], [address], 11/18/2024 18:36:04 12/09/19 25 12/09/2024 US, obste tric, follo w-up No observ ation record ed. [email or web address] [facility] [address], [place], [address], 12/09/2024 18:36:53 12/09/19 25 12/09/2024 US, obste tric, follo w-up No observ ation record ed. [email or web address] [facility] [address], [place], [address], 12/14/2024 09:29:45 01/14/20 25 01/13/2025 US, obste tric, follo w-up No observ ation record ed. [email or web address] [facility] [address], [place], [address], 01/13/2025 17:08:49 01/14/20 25 01/13/2025 US, obste tric, follo w-up No observ ation record ed. [email or web address] [facility] [address], [place], [address], 01/18/2025 19:15:16 02/02/20 25 02/01/2025 non-s tress test No observ ation record ed. [email or web address], [place], [address], 02/02/2025 11:28:53 Result Notes None recorded. Problems Name Problem SNOMED Code Status Onset Date Resolution Date Notes Provider Name and Address Organization Details Recorded Time 40872472 Active 2023 Lexie Olivo [facility], [place] - [facility] 12:10:37 Obesity 397666062 Active bmi 37-anten atal testing Rebecca Romero, JOSR [address], [place], [address], [facility] 4 12:35:08 Primigravi da 906020455 Active bASA Rebecca Romero, JOSR [address], [place], [address], [facility] 4 12:36:02 COVID-19 122568137 Active 2024 bASA and serial growth Angelica latham, [facility] 5 15:23:56 COVID-19 776905703 Active 2024 bASA and serial growth Angelica latham, [facility] 5 15:23:56 Problem Notes None recorded. Procedures Surgical History Date Name Laterality Status Provider Name and Address Organization Details Recorded Time 04/13/20 24 Date of [facility] 13:18:31 10/13/19 09 tonsilectomy[facility]adeno ids [facility]/04/2024 16:59:33 10/13/19 07 adenomyomectomy completed [facility] 08/04/2024 16:59:28 Imaging Results None recorded. Procedure Notes None recorded. Medical Equipment None [...] Updated DateTime 02/09/2025 170.18 cm 37 kg/m2 643528.8 g 110 mm[Hg] 74 mm[Hg] Lexie Olivo [facility] 12:44:03 Social History Question Answer Notes LastModified by Organizat ion Details LastModified Time Tobacco Smoking Status Never Smoker Lena Cartagena [facility] 01/20/2024 13:45:36 What Is Your Level Of Alcohol Consumption? None [email or web address] Information not available 07/09/2024 If You Are , What Was Your Level Of Alcohol Consumption Prior To ? Occasional [email or web address] Information not available 07/09/2024 How Many Years [...] Or The Highest Degree You Have Received? 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 [id number] [email or web address] Information not available 08/04/2024 Do You Use Any Illicit Or Recreational Drugs? No cox [email or web address] Information not available 04/13/2024 Do You Use Sunscreen Routinely? Yes Information not available 04/13/2024 How Many Years Have You Smoked Tobacco? 0 Information not available 04/13/2024 Have You Used IV Drugs? No Information not available 04/13/2024 Sex: Unknown Functional Status Question Answer Note LastModified by Organizat ion Details LastModified Time Do you have difficulty walking or climbing stairs? No Information not available 07/09/2024 Are you able to walk? YESWOREST Information not available 04/13/2024 Are you able to care for yourself? Yes [email or web address] Information not available 07/09/2024 Do you have difficulty dressing or bathing? No [email or web address] Information not available 07/09/2024 What is your exercise level? Occasional Information not available 04/13/2024 Mental Status None recorded. Family History Relationship Description Onset Age of this Age Resolved Age Notes LastModified by Organization Details LastModified Time Mother Hypertensive disorder Not available 2023 13:48:23 Paternal Grandmother Malignant tumor of breast llamay Not available 2023 14:05:10 Paternal Grandfather Diabetes mellitus Not available 2023 13:49:17 Maternal Aunt Polycystic ovary syndrome Not available 2024 12:03:59 Maternal Grandmother Disorder of thyroid gland [email or web address] Not available 08/25 12:10:06 Maternal Grandfather Hypertensive disorder [email or web address] Not available 08/25 12:10:06 Maternal Grandfather Diabetes mellitus [email or web address] Not available 10/20 16:36:23 Father Disorder of thyroid gland [email or web address] Not available 08/25 12:10:06 Medical History Condition Response Allergies (Food, seasonal, environmental ) N Other N Blood Transfusion N Drug/Latex Allergies/Reactions N Breast Cancer N Dermatologic Disorders N Lung Disease N [...] SNOMED-CT Code Diagnosis ICD10 Code Diagnosis Note [id number] Jaden Collier MD [facility] [address] [address] 01/13/2025 13:43:36 01/13/2025 14:17:25 History of SARS-CoV-2 4274016625 93130520 Z86.16 Z3A.32 [id number] [facility] [address] [address] 01/14/2025 11:53:24 01/14/2025 12:49:55 Gestation period, 32 weeks 8637641 Z3A.32 [id number] Jaden Collier MD [facility] [address] [address] 02/03/2025 15:22:36 02/04/2025 09:05:56 Third trimester 33649331 Z34.03 [id number] Rebecca Romero [facility] [address] [address] 02/09/2025 12:03:00 02/09/2025 13:53:29 screening 262916215 Z36.85 Gestation period, 36 weeks 16098444 Z3A.36 Health Concerns Section Related Observation LastModified by Organization Detai ls LastModified Time None Recorded Concern Status LastModified by Organization Details LastModified Time None Recorded Payers Encounter Date Sequence Insurance Name Policy Number Policy Blanc Covered Member ID Blanc Member ID Guarantor Name 02/09/2025 1 [place] [id number] Stalin Downey [id number] Stalin Downey OBGyn Episode Ob Episode Information Episode Created Date Number of Fetuses Patient Bloodtype Patient rh Status Prepregnancy Weight lbs Domestic Partner Domestic Partner Phone Father Name Drafting Technician Status 08/25/20 24 1 B Positive 230 Jarrod Downey OPEN Fetus Data First Name Last Name Admitted to NICU Weight (g) Sex Living Outcome Pediatric Complications Fetus ID Race Codes Race Delivery Type [id number] Problems Problem Notes ovarian cyst Problem Name Start Date End Date Resolution Snomed Code Not e Primigravida 476629151 bASA COVID-19 11/01/2024 092174142 bASA and serial growth Obesity 896117137 bmi 37-ant enatal testing Sven Calculation Initial [...] Weight in lbs Pre/Post Dialysis Refused Weight 225.726896271850 BP Diastolic BP Location Tested BP Systolic [...] Type Weight in lbs Pre/Post Dialysis Refused 225.030326328079 BP Diastolic BP Location Tested BP Systolic [...] Type Weight in lbs Pre/Post Dialysis Refused 228.244546108137 BP Diastolic BP Location Tested BP Systolic [...] Type Weight in lbs Pre/Post Dialysis Refused 233.320495594449 BP Diastolic BP Location Tested BP Systolic [...] Type Weight in lbs Pre/Post Dialysis Refused 232.73535834309 BP Diastolic BP Location Tested BP Systolic [...] Type Weight in lbs Pre/Post Dialysis Refused 232.72963044994 BP Diastolic BP Location Tested BP Systolic BP Type 73 116 Fetus Heart Rate Present Fetus Movement A Yes Comments +FM doing well, will see dr gonzalez for peds, will discuss rsv and preadmit [...] Weight in lbs Pre/Post Dialysis Refused Weight 233.953834199281 BP Diastolic BP Location Tested BP Systolic [...] Weight in lbs Pre/Post Dialysis Refused Weight 237.8436562370 BP Diastolic BP Location Tested BP Systolic [...] Weight in lbs Pre/Post Dialysis Refused Weight 236.259039546522 BP Diastolic BP Location Tested BP Systolic [...]
--- OUTSIDE RECORDS SUMMARY | 2025-02-10 01:17 | XMS_ITS | Clinical Summary ---
Author Organization [facility] Address [address] [place] [address] Phone Care Team Providers Care Pharmacy Benefits Coordinator Name Role Phone Cris Posada MD Primary [...] 78 02/08/2021 10:24 AM CDT Temperature 36.7 C (98 F) 02/08/2021 10:24 AM CDT Respiratory Rate 18 02/08/2021 10:24 AM CDT Oxygen Saturation 100% 02/08/2021 10:24 AM CDT Inhaled Oxygen Concentration - - Weight 104.8 kg (231 lb) 02/08/2021 10:24 AM CDT Height 172.7 cm (5' 8 ) 09/13/2020 10:18 AM HAM DOCTOR Body Mass Index 35.12 09/13/2020 10:18 AM HAM DOCTOR Plan of Treatment Health Maintenance Due Date Last Done Comments CHLAMYDIA SCREENING (ANNUAL) 11-24 YEARS 2012 CERVICAL CANCER SCREENING 2022 HPV/Cotest (21-29) 2022 PAP SMEAR 2022 INFLUENZA VACCINE (#1) 2024 , 07/04/2017, 07/26/2015 DTAP/TDAP/TD VACCINES (8 - T d or Tdap) 09/13/2030 09/13/2020, 08/13/2012, 04/24/2006, Additional history exists HEPATITIS B VACCINES Completed 2001, 2001, 2001 HPV VACCINES Completed 09/13/2020, 07/26/2015 Insurance Care Teams Pharmacy Benefits Coordinator Relationship Specialty Start Date End Date Cris Posada MD PCP - General Pediatrics 07/04/17
[2025-02-10 01:31] VITALS: BP 120/75; PULSE 97
[2025-02-10 01:42] LABS: Add Urine Microscopic? NO; Appearance Urine Clear (Clear); Bilirubin Urine Negative (Negative); Blood Urine Negative (Negative); Color Urine Yellow (Yellow); Glucose Urine UA Negative (Negative); Ketones Urine Negative (Negative); Leukocyte Esterase Ur Negative LEU/UL (Negative); Nitrate Urine Negative (Negative); Protein Urine Negative (Negative); Specific Grav Ur 1.019 (1.001-1.035); Urobilinogen Urine 0.2 mg/dL (<2.0); pH Urine 6.5 (5.0-9.0)
[2025-02-10 01:46] VITALS: BP 115/77; PULSE 91
[2025-02-10 02:01] VITALS: BP 112/77; PULSE 91
[2025-02-10 02:16] VITALS: BP 122/73; PULSE 88
[2025-02-10 02:29] VITALS: BMI 36.1
--- NOTE | 2025-02-10 02:29 | OBADM ---
This patient, Stalin Downey, admitted to the OB room Labor/Delivery/Recovery 107 for observation. Patient/family oriented to hospital policies and general routines including ID bracelet, bed and alarms, visiting hours, pain management, procedures, bathroom and other care routines, personal items, smoking policy, room service/diet, and visiting hours. Patient/Family are encouraged to report perceived risks to care and to ask questions if they do not understand what they are told or what they should do.
--- NOTE | 2025-02-11 11:57 | PM.OBTRLD ---
OB - Triage/Final Diagnosis Visit Information Date of evaluation: 02/10/25 Reason for evaluation: threatened labor Comments/Additional reasons for admission: I have assessed the risk for this patient, Stalin Downey, and determined that she would benefit from observation care. Evaluation Laboratory results: Laboratory Tests 02/10/25 01:21 Urine Color Yellow Urine Appearance Clear Urine pH 6.5 Ur Specific [place] 1.019 Urine Protein Negative Urine Glucose (UA) Negative Urine Ketones Negative Ur Blood (Man) Negative Urine Nitrate Negative Urine Bilirubin Negative Urine Urobilinogen 0.2 Leukocyte Esterase Rfl Negative
== END 2025-02-10 02:45 | disposition home or self-care (01) ==
PROVIDERS: Advanced Practice Midwife; Admitting Provider Obstetrics & Gynecology; PCP Nurse Practitioner Family; Visit Provider Obstetrics & Gynecology
DX: O47.03 False labor before 37 completed weeks of gestation, third trimester (principal); Z3A.36 36 weeks gestation of pregnancy
CPT/HCPCS: 81003; G0378; G0379

== ENCOUNTER 2025-02-20 15:18 | Outpatient (CLI) | payer OTHER, MEDICAID, SELFPAY ==
--- OUTSIDE RECORDS SUMMARY | 2025-02-20 15:30 | XMS_ITS | Data Portability ---
Author Organization [facility] Address [address] [place] [address] Care Team Providers Care Welfare Supervisor Name Role Phone LUCIA KINCAID Primary Care Provider Assessment Encounter Date Assessment Date Assessment LastModified by Organization Details LastModified Time 02/03/2025 02/03/2025 Patient is ___weeks . Discussed plan. [email or web address] Not available 02/03/2025 16:44:07 02/09/2025 02/09/2025 Patient is __36_weeks . Discussed plan. [email or web address] Not available 02/09/2025 13:45:55 02/16/2025 02/16/2025 Patient is __37_weeks . Discussed plan. [email or web address] Not available 02/16/2025 16:11:32 Plan of Treatment Reminders Order Date Submit Date Provider Last Modified By Organization Details Last Modified Time Details Appointments U/S OB BPP 2024 01:30P M ULTRASOUND Not available Not available Not available NST 2024 02:00P M NST SCHEDULE Not available Not available Not available OB ROUTINE 2024 02:30P M Rebecca Romero CNM Not available Not available Not available INDUCTI ON 2024 05:00P M Rebecca Romero CNM Not available Not available Not available U/S OB BPP 2024 01:30P M ULTRASOUND Not available Not available Not available NST 2024 02:00P M NST SCHEDULE Not available Not available Not available OB ROUTINE 2024 02:30P Irma Romero CNM Not available Not available Not available Lab strepto coccus group B, culture , unspeci fied specime n 2024 [facility] (Lab), [address], [place], [address], 02/12/2025 15:11:21 Referral None recorde d. Procedures None recorde d. Surgeries None recorde d. Imaging non-str ess test 2024 025 [email or web address] [address], [address], [place], [address], 02/17/2025 11:01:44 US, obstetr ic, follow- up 2024 025 [email or web address] [address], [address], [place], [address], 02/16/2025 15:59:48 US, obstetr ic, biophys ical profile + non-str ess test 2024 025 [facility], [address], [place], [address], 02/16/2025 17:25:24 Medication Orders None recorde d. Patient TargetsNo targets recorded. Patient InstructionsNo instructions recorded. Reason for Referral None Reported. Results Created Date Observation Date Name Description Value Unit Range Abnormal Flag Note LastModifiedBy Organization Detail LastModifiedTime 02/10/2002/09/2025 CULTU RE: GROUP B STREP SCREE N, REFLE X SUSCE PTIBI LITY result report SEE RESULT S BELOW Test: Cultu re: Group B Strep , Refle x Susce ptibi lity ([facility]/ [facility] ) Speci men Sourc e: Vagin a/Rec jimena Speci men Type: Vagin al/Re ctal Speci men Date: 2024 1330 Resul t Date: 1408 Resul t Statu s: Final resul t Abnor mal: No Resul ting Lab: [facility] [address] [facility] [address] Tel: CULTU RE ----- ----- ----- --- No Group B strep isola brandie at 2 days (eel ctive broth ze clinton t) Not Available [facility] (Lab) [address] [facility], [place], [address], 02/12/2025 15:11:21 01/14/20 25 01/13/2025 US, obste tric, follo w-up No observ ation record ed. [email or web address] [facility] [address], [place], [address], 01/13/2025 17:08:49 01/14/20 25 01/13/2025 US, obste tric, follo w-up No observ ation record ed. [email or web address] [address] [facility], [place], [address], 01/18/2025 19:15:16 02/02/20 25 02/01/2025 non-s tress test No observ ation record ed. [place] [id number] [facility] [address], [place], [address], 02/02/2025 11:28:53 02/11/20 25 02/10/2025 non-s tress test No observ ation record ed. [facility] [address], [place], [address], 02/16/2025 14:38:35 02/17/20 25 02/16/2025 US, obste tric, follo w-up No observ ation record ed. [email or web address] [facility] [address], [place], [address], 02/16/2025 17:25:14 02/17/20 25 02/16/2025 US, paul castro, bioph ysica l profi le + non-s tress test No observ ation record ed. [email or web address] [facility] [address], [place], [address], 02/16/2025 17:25:24 02/17/20 25 02/16/2025 US, obste tric, follo w-up No observ ation record ed. [email or web address] [address], [place], [address], 02/18/2025 16:17:10 02/17/20 25 02/16/2025 non-s tress test No observ ation record ed. [facility] [address], [place], [address], 02/16/2025 20:26:24 02/17/20 25 02/16/2025 non-s tress test No observ ation record ed. [email or web address] [facility] [address], [place], [address], 02/16/2025 22:02:51 Result Notes None recorded. Problems Name Problem SNOMED Code Status Onset Date Resolution Date Notes Provider Name and Address Organization Details Recorded Time 73243952 Active 2023 Lexie latham, [facility] 4 12:10:37 Obesity 039028261 Active bmi 37-anten atal testing Rebecca Romero CNM [address], [place], [address], [facility] 4 12:35:08 Primigravi da 712314073 Active bASA Rebecca Romero CNM [address], [place], [address], [facility] 4 12:36:02 COVID-19 630206246 Active 2024 bASA and serial growth Angelica latham, [facility] 15:23:56 COVID-19 740755844 Active 2024 bASA and serial growth Angelica Homero latham [facility] 15:23:56 Problem Notes None recorded. Procedures Surgical History Date Name Laterality Status Provider Name and Address Organization Details Recorded Time 04/13/20 24 Date of Last Pap Smear completed Lexie Olivo [facility] 07/08/2024 13:18:31 10/13/19 09 tonsilectomy/adeno ids completed Lexie Olivo [facility] 08/04/2024 16:59:33 10/13/19 07 adenomyomectomy completed Lexiehaylie Olivo [facility] 08/04/2024 16:59:28 Imaging Results Imaging Date Name Status LastModified by Organiz ation Details LastModified Time 01/13/2025 US, obstetric, follow-up completed [email or web address] [facility] [address], [place], [address], 01/13/2025 17:08:49 01/13/2025 US, obstetric, follow-up completed [email or web address] [address], [place], [address], 01/18/2025 19:15:16 02/01/2025 non-stress test completed [address], [place], [address], 02/02/2025 11:28:53 02/10/2025 non-stress test completed [facility] [address], [address], 02/16/2025 14:38:35 02/16/2025 US, obstetric, follow-up completed [email or web address] [facility] [address], [place], [address], 02/16/2025 17:25:14 02/16/2025 US, obstetric, biophysical profile + non-stress test completed [email or web address] [facility] [address], [place], [address], 02/16/2025 17:25:24 02/16/2025 US, obstetric, follow-up completed [email or web address] [address], [place], [address], 02/18/2025 16:17:10 02/16/2025 non-stress test completed [email or web address] [facility] [address], [place], [address], 02/16/2025 20:26:24 02/16/2025 non-stress test completed [email or web address] [facility] [address], [place], [address], 02/16/2025 22:02:51 Procedure Notes None recorded. Medical Equipment None [...] Updated DateTime 02/03/2025 170.18 cm 37.1 kg/m2 121385.3 9 g 118 mm[Hg] 76 mm[Hg] Marlin Rocha [facility] 5 16:45:09 Date Recorded Body height Body mass index (BMI) Body weight Systolic blood pressure Diastolic blood pressure Provider Name and Address Organization Details Last Updated DateTime 02/09/2025 170.18 cm 37 kg/m2 261265.8 g 110 mm[Hg] 74 mm[Hg] Lexie Olivo [facility] 5 12:44:03 Date Recorded Body weight Body mass index (BMI) Body height Body height Body mass index (BMI) Body weight Systolic blood pressure Diastolic blood pressure Systolic blood pressure Diastolic blood pressure Provider Name and Address Organization Details Last Updated DateTime 5 437357. 26677 g 37.7 kg/m2 170.18 cm 170.18 cm 37.7 kg/m2 453092. 76 g 114 mm[Hg] 77 mm[Hg] 114 mm[Hg] 77 mm[Hg] Lexie Olivo [facility] 5 20:24:35 Social History Question Answer Notes LastModified by Organizat ion Details LastModified Time Tobacco Smoking Status Never Smoker Lena Cartagena [facility] 01/20/2024 13:45:36 What Is Your Level Of Alcohol Consumption? None Information not available 07/09/2024 If You Are , What Was Your Level Of Alcohol Consumption Prior To ? Occasional [email or web address] Information not available 07/09/2024 How Many Years [...] Or The Highest Degree You Have Received? 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 No Information not available 04/13/2024 Do You Use Protection During Sex? No Information not available 04/13/2024 Do You Use Your Seat Belt Or Car Seat Routinely? Yes Information not available 04/13/2024 Do You Have Smoke And Carbon Monoxide Detectors In Your Home? Yes [email or web address] Information not available 04/13/2024 At What Age Did You Start Smoking Tobacco? 0 Information not available 04/13/2024 How Much Tobacco Do You Smoke? No Information not available 04/13/2024 Do You Feel Stressed (tense, Restless, Nervous, Or Anxious, Or Unable To Sleep At Night)? [id number] [email or web address] Information not available 08/04/2024 Do You Use [...] have difficulty walking or climbing stairs? No [email or web address] Information not available 07/09/2024 Are you able to walk? [email or web address] Information not available 04/13/2024 Are you able to care for yourself? Yes [email or web address] Information not available 07/09/2024 Do you have difficulty dressing or bathing? No [email or web address] Information not available 07/09/2024 What is your [...] 2023 13:49:17 Maternal Aunt Polycystic ovary syndrome [email or web address] Not available 04/2025 14:20:29 Maternal Grandmother Disorder of thyroid gland Not available 08/25 12:10:06 Maternal Grandfather Hypertensive disorder [email or web address] Not available 08/25 12:10:06 Maternal Grandfather Diabetes mellitus [email or web address] Not available 10/20 16:36:23 Father Disorder of thyroid gland [email or web address] Not available 08/25 12:10:06 Medical History Condition Response Allergies (Food, seasonal, environmental ) N Other N Drug/Latex Allergies/Reactions N Blood Transfusion N Breast Cancer N Dermatologic Disorders N Lung Disease N Defects or Inherited Disease N Breast Problem N Gestational Diabetes N Hematologic disorders N Anesthesia Complications N History of STI N Deep Vein Thrombosis N Polycystic ovary syndrome N Anxiety Disorder N Autoimmune disease N Arthritis N Polyps N Infertility N Acid Reflux (GERD) N History of abnormal pap N Cancer N Varicosities N Stroke N Neurologic/Epilepsy N Endometriosis N High Cholesterol N Fibromyalgia N Headaches N Kidney Disease N Heart Problems N Thyroid Problems N Kidney or Bladder Problems N GI Problems N Eating Disorder [...] SNOMED-CT Code Diagnosis ICD10 Code Diagnosis Note [id number] NAM Sahu [facility] [address] [address] 01/20/2024 13:38:11 01/20/2024 14:38:14 Contraception care management 691397823 Z30.9 Discussed all control options in great [...] care. Initial pr escription of oral contraception 808395006 Z30.011 [id number] NAM Sahu [facility] [address] [address] 04/13/2024 16:17:42 04/14/2024 11:09:35 Screening procedure 32933285 Z13.9 Gynecologi c examination 08931840 Z01.419 Z11.3 Z11.8 WWEpap updateddec lined STI [...] paper copy of today's plan if desired. Contracept ion care management 046107986 Z30.9 All BC options discussedo pts to switch to nextstelli srx sent, r/b/a reviewedre cords requested from recent pelvic u/s at [facility] d check in 3-4 months [id number] Jaden Collier MD [facility] [address],[place] [address] 07/09/2024 13:55:23 07/19/2024 14:54:37 Uterine size for dates discrepancy 765725972 O26.849 [id number] Rebecca Romero [facility] [address],[place] [address] 07/09/2024 13:57:09 07/12/2024 07:47:10 [id number] Jaden Collier MD [facility] [address] [address] 08/02/2024 16:26:08 08/02/2024 16:57:01 [id number] [facility] [address],[place] [address] 08/04/2024 16:31:47 08/05/2024 10:28:26 Nausea and vomiting 81602828 R11.2 Amenorrhea 31103821 N91. 2 reviewed precaution s and educationo k for flu/covid vaccinesed c 03/07/25, continue vitamin dailypap up to date [id number] Jaden Collier MD [facility] [address] [address] 08/24/2024 12:14:52 08/24/2024 13:12:57 screening 824683907 Z36.82 Z3A.12 [id number] [facility] [address] [place] [address] 08/25/2024 11:55:57 08/25/2024 12:52:32 Routine care 894389862 Z34.90 Gestation period, 12 weeks 46209016 Z3A.12 Dizziness 644063370 R42 [id number] Jaden Collier MD [facility] [address] [place] [address] 09/22/2024 11:16:38 09/22/2024 12:09:53 Abdominal pain in 067108839 O99.891 Z3A.16 [id number] Rebecca Romero [facility] [address],[place] [address] 09/22/2024 11:17:59 09/22/2024 14:00:37 Gestation period, 16 weeks 03346227 Z3A.16 [id number] Rebecca Romero [facility] [address],[place] [address] 10/20/2024 14:36:08 10/20/2024 17:06:53 Gestation period, 20 weeks 87379992 Z3A.20 [id number] Jaden Collier MD [facility] [address],[place] [address] 10/20/2024 14:46:47 10/20/2024 16:21:14 screening for malformation 129220704 Z36.3 Z3A.20 [id number] Jaden Collier MD [facility] [address],[place] [address] 11/18/2024 11:44:24 11/18/2024 14:35:28 screening 281132686 Z36.2 Z3A.24 [id number] Rebecca Romero [facility] [address],[place] [address] 11/24/2024 14:31:12 11/24/2024 14:59:33 Gestation period, 25 weeks 58373518 Z3A.25 [id number] Jaden Collier MD [facility] [address],[place] [address] 12/09/2024 14:48:54 12/09/2024 15:54:01 condition affecting obstetrical care of mother 236325797 O35.3XX0 Z3A.27 [id number] Rebecca Romero [facility] [address],[place] [address] 12/15/2024 15:30:06 12/15/2024 16:02:07 Gestation period, 28 weeks 83221925 Z3A.28 [id number] [facility] [address],[place] [address] 12/29/2024 14:07:57 12/29/2024 14:50:54 Gestation period, 30 weeks 83412053 Z3A.30 [id number] Jaden Collier MD [facility] [address],[place] [address] 01/13/2025 13:43:36 01/13/2025 14:17:25 History of SARS-CoV-2 0883529029 59842950 Z86.16 Z3A.32 [id number] [facility] [address],[place] [address] 01/14/2025 11:53:24 01/14/2025 12:49:55 Gestation period, 32 weeks 0143974 Z3A.32 [id number] Jaden Collier MD [facility] [address] [address] 02/03/2025 15:22:36 02/04/2025 09:05:56 Third trimester 28924861 Z34.03 [id number] [facility] [address],[place] [address] 02/09/2025 12:03:00 02/09/2025 13:53:29 screening 814448178 Z36.85 Gestation period, 36 weeks 33505029 Z3A.36 [id number] Jaden Collier MD [facility] [address] [address] 02/16/2025 14:19:45 02/16/2025 15:12:39 Obesity 720588877 O99.210 Z86.16 Z3A.37 [id number] [facility] [address],[place] [address] 02/16/2025 14:20:18 02/17/2025 11:01:44 Body mass index 30+ - obesity 592310570 E66.9 [id number] Rebecca Romero CNM [facility] [address] [address] 02/16/2025 14:20:41 02/16/2025 16:17:55 Gestation period, 37 weeks 31160311 Z3A.37 cont pnv Health Concerns Section Related Observation LastModified by Organization Detai ls LastModified Time None Recorded Concern Status LastModified by Organization Details LastModified Time None Recorded Advance Directives Directive None Recorded Payers Encounter Date Sequence Insurance Name Policy Number Policy Blanc Covered Member ID Blanc Member ID Guarantor Name 02/03/2025 2 [place] [facility] [facility] [facility] Stalin Downey [id number] Stalin Downey 02/09/2025 2 [place] [employer] Stalin Downey [id number] Stalin Downey 02/16/2025 2 [place] [employer] Stalin Downey [id number] Stalin Downey 02/16/2025 2 [place] [employer] Stalin Downey [id number] Stalin Downey 02/16/2025 2 [place] [employer] Stalin Downey [id number] Stalin Downey OBGyn Episode Ob Episode Information Episode Created Date Number of Fetuses Patient Bloodtype Patient rh Status Prepregnancy Weight lbs Domestic Partner Domestic Partner Phone Father Name Automation Engineer Status 08/25/20 24 1 B Positive 230 Jarrod Downey OPEN Fetus Data First Name Last Name Admitted to NICU Weight (g) Sex Living Outcome Pediatric Complications Fetus ID Race Codes Race Delivery Type [id number] Problems Problem Notes ovarian cyst Problem Name Start Date End Date Resolution Snomed Code Not e Primigravida 074062080 bASA COVID-19 11/01/2024 323603411 bASA and serial growth Obesity 797123044 bmi 37-ant enatal testing Sven Calculation Initial [...] Weight in lbs Pre/Post Dialysis Refused Weight 225.689100171493 BP Diastolic BP Location Tested BP Systolic [...] Type Weight in lbs Pre/Post Dialysis Refused 225.366001938372 BP Diastolic BP Location Tested BP Systolic [...] Type Weight in lbs Pre/Post Dialysis Refused 228.444103096312 BP Diastolic BP Location Tested BP Systolic [...] Type Weight in lbs Pre/Post Dialysis Refused 233.127124108685 BP Diastolic BP Location Tested BP Systolic [...] Type Weight in lbs Pre/Post Dialysis Refused 232.05934876645 BP Diastolic BP Location Tested BP Systolic [...] Type Weight in lbs Pre/Post Dialysis Refused 232.99790394534 BP Diastolic BP Location Tested BP Systolic [...] Weight in lbs Pre/Post Dialysis Refused Weight 233.292350926993 BP Diastolic BP Location Tested BP Systolic [...] Weight in lbs Pre/Post Dialysis Refused Weight 237.7632763649 BP Diastolic BP Location Tested BP Systolic [...] Weight in lbs Pre/Post Dialysis Refused Weight 236.847314243769 BP Diastolic BP Location Tested BP Systolic BP Type 74 110 Fetus Heart Rate Present A 155 Present Fetus Movement A Yes Comments Patient is having cramping a nd discharge. reviewed precautions, education, testing next week +FM, f/u one week Flowsheet Date 02/16/2025 Shipley Score Blood Edema Fundus Height Fundus Units Glucose Ketones Leukocytes Nitrite Labor Signs Protein Cervic Dilation Cervic Effacement Cervic Station Type Weight in lbs Pre/Post Dialysis Refused BP Diastolic BP Location Tested BP Systolic BP Type Fetus Heart Rate Present Fetus Movement Comments Flowsheet Date 02/16/2025 Shipley Score Blood Edema Fundus Height Fundus Units Glucose Ketones Leukocytes Nitrite Labor Signs Protein Cervic Dilation Cervic Effacement Cervic Station Type Weight in lbs Pre/Post Dialysis Refused Weight 241.438182219564 BP Diastolic BP Location Tested BP Systolic BP Type 77 114 Fetus Heart Rate Present Fetus Movement Comments Flowsheet Date 02/16/2025 Shipley Score Blood Edema Fundus Height Fundus Units Glucose Ketones Leukocytes Nitrite Labor Signs Protein Cervic Dilation Cervic Effacement Cervic Station neg none Type Weight in lbs Pre/Post Dialysis Refused 241.60008393011 BP Diastolic BP Location Tested BP Systolic BP Type 77 114 Fetus Heart Rate Present Fetus Movement A Yes Comments Patient is having pain, cram ping and discharge. pt desires Elective IOL, discussed risks and benefits, +FM bpp 05/20 IOL 03/01at 1700 f/u one week efw 66% Menstrual History Last Menstrual Date Menses Monthly [...]
--- OUTSIDE RECORDS SUMMARY | 2025-02-20 15:30 | XMS_ITS | Clinical Summary ---
Author Organization [facility] Address [address] [place] [address] Care Team Providers Care Events Solutions Consultant Name Role Phone Maia Gayle MD Primary Care Provider [phone] Source Comments [facility] Affiliates and Associated Physician Practices is amultiple site organization consisting of ambulatory clinics and hospital sitesin [place], [place], [place] and [place]. This disclosure is being madepursuant to the Care Everywhere program and may not contain all information available regarding this patient. 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
--- OUTSIDE RECORDS SUMMARY | 2025-02-20 15:30 | XMS_ITS | CONTINUITY OF CARE DOCUMENT ---
Author Name alda lizama Address Unknown Organization [facility] Address [address] [place] [address] [address] [place] [address] Phone [phone] Care Team Providers Care Industrial Technician Name Role Phone Sugey Williamson MD Unavailable [phone] KRYSTIN CELIS MD Unavailable [phone] INSURANCE PROVIDERS Payer name Policy type / Coverage type [place] red constitution party ID HEALTHCARE AND FAMILY SERVICES Medicaid 1 [id number]
--- OUTSIDE RECORDS SUMMARY | 2025-02-20 15:30 | XMS_ITS | Clinical Summary ---
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
[2025-02-20 15:51] VITALS: BP 127/73; PULSE 106
[2025-02-20 16:00] VITALS: BP 128/74; PULSE 108
[2025-02-20 16:01] LABS: Basophils Percent Auto 0.4 % (0.2-1.2); Eosinophils Absolute Auto 0.2 K/mm3 (0-0.3); Eosinophils Percent Auto 1.5 % (0-4.4); Hematocrit 34.7 % (37.0-47.0); Hemoglobin 10.9 g/dL (12.0-15.0); Immature Granulocyte Absolute 0.07 K/mm3 (0.00-0.031); Immature Granulocyte Percent A 0.6 % (0-0.5); Lymphocytes Absolute Auto 1.67 K/mm3 (0.9-3.2); Lymphocytes Percent Auto 15.3 % (18.3-44.2); Mean Corpuscular HGB Conc 31.4 g/dl (32-36); Mean Corpuscular Hemoglobin 26.8 pg (26-34); Mean Corpuscular Volume 85.3 fl (80-100); Mean Platelet Volume 11.4 fl (7.4-10.4); Monocytes Absolute Auto 0.6 K/mm3 (0.1-0.6); Monocytes Percent Auto 5.6 % (2.6-8.5); Neutrophils Absolute Auto 8.3 K/mm3 (1.3-6.7); Neutrophils Percent Auto 76.6 % (45.5-73.1); Platelet Count Result 266 k/mm3 (150-375); Red Blood Count 4.07 M/mm3 (4.2-5.4); Red Cell Distribution Width 13.8 % (11.5-14.5); White Blood Count 10.9 K/mm3 (4.5-10.0)
[2025-02-20 16:07] LABS: Add Urine Microscopic? YES; Appearance Urine Cloudy (Clear); Bacteria Urine 3+ /hpf; Bilirubin Urine Negative (Negative); Blood Urine Negative (Negative); Color Urine Yellow (Yellow); Glucose Urine UA Negative (Negative); Ketones Urine Negative (Negative); Leukocyte Esterase Ur 2+ LEU/UL (Negative); Nitrate Urine Negative (Negative); Non Pathogenic Casts 0-2; Protein Urine Trace mg/dL (Negative); RBC Urine 0-2 /hpf (0-2); Specific Grav Ur 1.022 (1.001-1.035); Squamous Epithelial Cell Urine Moderate /hpf (Few); WBC Urine 21-50 /hpf (0-3)
[2025-02-20 16:12] LABS: Creatinine Urine 87.1 mg/dL; Total Protein Urine Random 6 mg/dL; Ur Ttl Prot Creatinine Ratio 0.07 mg/mg (0-0.20)
[2025-02-20 16:15] VITALS: BP 132/81; PULSE 100
[2025-02-20 16:15] LABS: Alanine Aminotransferase 21 U/L (6-35); Albumin Level 3.4 g/dL (3.5-5.1); Alkaline Phosphatase 162 U/L (38-126); Anion Gap 6 mmol/L (4-12); Aspartate Amino Transferase 30 U/L (14-36); Bilirubin,Total 0.3 mg/dL (0.2-1.3); Blood Urea Nitrogen 8 mg/dL (7-17); Calcium 8.7 mg/dL (8.4-10.2); Carbon Dioxide 21 mmol/L (22-30); Chloride 107 mmol/L (98-107); Estimated Glomerular Filt Rate > 60; Glucose 111 mg/dL (65-110); Potassium 4.3 mmol/L (3.4-5.0); Sodium 134 mmol/L (137-145); Uric Acid 3.5 mg/dL (2.5-7.5)
== END 2025-02-20 16:35 | disposition home or self-care (01) ==
LOC: ANHOBOP 15:28 → ANHLDR 15:32
PROVIDERS: Obstetrics & Gynecology; PCP Nurse Practitioner Family; Visit Provider Advanced Practice Midwife
DX: O13.9 Gestational [pregnancy-induced] hypertension without significant proteinuria, unspecified trimester (principal)
CPT/HCPCS: 36415; 59025; 80053; 81001; 82570; 84156; 84550; 85025; 99199

== ENCOUNTER 2025-03-01 16:47 | Inpatient (IN) | payer MEDICAID, SELFPAY ==
[2025-03-01] VITALS (13 sets, daily range): BP systolic 75–142; BP diastolic 63–88; PULSE 88–194; TEMP 36.9; BMI 36.8
--- OUTSIDE RECORDS SUMMARY | 2025-03-01 16:54 | XMS_ITS | CONTINUITY OF CARE DOCUMENT ---
Author Name alda lizama Address Unknown Organization [facility] Address [address] [place] [address] [address] [place] [address] Phone [phone] Care Team Providers Care Returned Item Clerk Name Role Phone Sugey Williamson MD Unavailable KRYSTIN CELIS MD Unavailable [phone] INSURANCE PROVIDERS Payer name Policy type / Coverage type [place] red constitution party ID HEALTHCARE AND FAMILY SERVICES Medicaid 1 [id number]
--- OUTSIDE RECORDS SUMMARY | 2025-03-01 16:54 | XMS_ITS | Clinical Summary ---
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 Body Mass Index 35.12 09/13/2020 10:18 AM FINISHER [employer]ODU[employer] Plan of Treatment Health Maintenance Due Date Last Done Comments CHLAMYDIA SCREENING (ANNUAL) 11-24 YEARS 2012 CERVICAL CANCER SCREENING 2022 HPV/Cotest (21-29) 2022 PAP SMEAR 2022 INFLUENZA VACCINE (#1) 2024 , 07/04/2017, 07/26/2015 DTAP/TDAP/TD VACCINES (8 - T d or Tdap) 09/13/2030 09/13/2020, 08/13/2012, 04/24/2006, Additional history exists HEPATITIS B VACCINES Completed 2001, 2001, 2001 HPV VACCINES Completed 09/13/2020, 07/26/2015 Insurance Care Teams Electronic Engineering Technician Relationship Specialty Start Date End Date Cris Posada MD PCP - General Pediatrics 07/04/17
--- OUTSIDE RECORDS SUMMARY | 2025-03-01 16:54 | XMS_ITS | Clinical Summary ---
Author Organization [facility] Address [address] [place] [address] Care Team Providers Care Automotive Mechanical Engineer Name Role Phone Maia Gayle MD Primary Care Provider [phone] Source Comments [facility] Affiliates and Associated Physician Practices is amultiple site organization consisting of ambulatory clinics and hospital sitesin [place], [place], [place] and [place]. This disclosure is being madepursuant to the Care Everywhere program and may not contain all information available regarding this patient. 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
[2025-03-01 17:36] LABS: Basophils Percent Auto 0.3 % (0.2-1.2); Eosinophils Absolute Auto 0.1 K/mm3 (0-0.3); Eosinophils Percent Auto 1.3 % (0-4.4); Hematocrit 34.4 % (37.0-47.0); Hemoglobin 10.8 g/dL (12.0-15.0); Immature Granulocyte Absolute 0.04 K/mm3 (0.00-0.031); Immature Granulocyte Percent A 0.4 % (0-0.5); Lymphocytes Absolute Auto 1.79 K/mm3 (0.9-3.2); Lymphocytes Percent Auto 16.6 % (18.3-44.2); Mean Corpuscular HGB Conc 31.4 g/dl (32-36); Mean Corpuscular Hemoglobin 26.5 pg (26-34); Mean Corpuscular Volume 84.5 fl (80-100); Mean Platelet Volume 11.1 fl (7.4-10.4); Monocytes Absolute Auto 0.7 K/mm3 (0.1-0.6); Monocytes Percent Auto 6.3 % (2.6-8.5); Neutrophils Absolute Auto 8.1 K/mm3 (1.3-6.7); Neutrophils Percent Auto 75.1 % (45.5-73.1); Platelet Count Result 272 k/mm3 (150-375); Red Blood Count 4.07 M/mm3 (4.2-5.4); Red Cell Distribution Width 14.3 % (11.5-14.5); White Blood Count 10.8 K/mm3 (4.5-10.0)
--- NOTE | 2025-03-01 17:43 | LDADM ---
This patient, Stalin Downey, was admitted to Labor/Delivery/Recovery 103 on 03/01/25 at 16:47. Plans for labor, pain management and were discussed with patient. Patient/family oriented to hospital policies and general routines including ID bracelet, bed and alarms, visiting hours, pain management, procedures, bathroom and other care routines, personal items, smoking policy, room service/diet and guest tray routines, security routines, and visiting hours. Patient/Family are encouraged to report perceived risks to care and to ask questions if they do not understand what they are told or what they should do. See OBIX for further documentation.
[2025-03-01] MEDS: miSOPROStol 25 MCG TABLET 50 MCG BUCCAL (18:22)
[2025-03-01 18:36] LABS: HIV 1/2 Ab P24 Ag Result Negative (Negative)
[2025-03-01 18:55] LABS: Syphilis IgG/IgM Antibody Negative (Negative)
[2025-03-02] VITALS (194 sets, daily range): BP systolic 64–132; BP diastolic 33–94; PULSE 68–164; RESP 16–18; TEMP 36.6–36.8; O2SAT 96–100
[2025-03-02] MEDS: OXYTOCIN 30 UNITS/NS 500 ML 30 UNITS/500 ML BAG IV CONT (04:30)
[2025-03-02] MEDS: LACTATED RINGERS 1,000 ML 125 ML IV CONT ×3 (04:37→21:43)
--- NOTE | 2025-03-02 06:25 | P.PNAN_ITS ---
Anes - Eval Pre Procedure Procedure: labor pain management Date/Time: 03/02/25 06:25 Surgeon: Nando Preop Diagnosis: Pain during labor Pre Op Diagnosis: IOL Patient Data Age: 24 Gender: F Height: 1.73 m Weight: 110 kg Last Vital Signs Temp 98.1 F 03/02/25 01:20 Pulse 82 03/02/25 06:00 BP 112/80 03/02/25 06:00 O2 Del Method Room Air 03/01/25 17:40 Allergies Allergy/AdvReac Type Severity Reaction Status Date / Time No Known Allergies Allergy Mild Verified 03/01/25 17:03 Home Medications ?Medication ?Instructions ?Recorded ?Confirmed ?Type vitamin #56-iron 35 mg 1 cap PO DAILY #90 caps 07/12/24 03/01/25 Rx and 5 mg-folic acid 1 mg-dha capsule aspirin 81 mg chewable tablet 81 mg PO DAILY 01/03/25 03/01/25 History famotidine 10 mg tablet 10 mg PO BID #14 tabs 01/03/25 02/03/25 Rx Laboratory Tests 03/01/25 03/01/25 17:26 17:27 WBC 10.8 H K/mm3 (4.5-10.0) RBC 4.07 L M/mm3 (4.2-5.4) Hgb 10.8 L g/dL (12.0-15.0) Hct 34.4 L % (37.0-47.0) MCV 84.5 fl (80-100) MCH 26.5 pg (26-34) MCHC 31.4 L g/dl (32-36) RDW 14.3 % (11.5-14.5) Plt Count 272 k/mm3 (150-375) MPV 11.1 H fl (7.4-10.4) Immature Gran % (Auto) 0.4 % (0-0.5) Neut % (Auto) 75.1 H % (45.5-73.1) Lymph % (Auto) 16.6 L % (18.3-44.2) Potter % (Auto) 6.3 % (2.6-8.5) Eos % (Auto) 1.3 % (0-4.4) Baso % (Auto) 0.3 % (0.2-1.2) Lymph # (Auto) 1.79 K/mm3 (0.9-3.2) Potter # (Auto) 0.7 H K/mm3 (0.1-0.6) Eos # (Auto) 0.1 K/mm3 (0-0.3) Baso # (Auto) 0.0 K/mm3 (0.0-0.1) Abs Immat Gran (auto) 0.04 H K/mm3 (0.00-0.031) Absolute Neuts (auto) 8.1 H K/mm3 (1.3-6.7) Absolute Nucleated RBC 0.000 K/mm3 (0.0-0.012) Nucleated RBC % 0.0 % (0.0-0.2) Syphilis IgG/IgM Ab Negative (Negative) HIV 1&2 Ab/P24 Ag 4thGn Negative (Negative) Blood Type B Positive Antibody Screen Negative Patient hx anesthesia problems: none Family hx anesthesia problems: none Results Review: All pre-operative results and documents have been reviewed as part of the pre- operative evaluation. [facility] Past Medical History Medical History GERD without esophagitis Anxiety Irritable bowel syndrome with diarrhea Healthy female adult Surgical History Surgical History Hx of tonsillectomy H/O adenoidectomy No pertinent past surgical history Family History Family History Mother Depression with anxiety Hypertension Sibling Heart disease heart problems Grandparent Alcoholism maternal grandmother Cancer paternal grandmother had breast cancer Depression with anxiety Diabetes mellitus Hypertension Cerebrovascular accident Social History Social History Smoking status: Never smoker Alcohol intake: never Substance use: never Substance use type: does not use Do You Feel Safe in your Home?: Yes Lack of Transportation: No Lack of Food: Never True Current Housing: I Have Housing Concerned About Future Housing: No Difficulty Paying Gas/Electric Bills: No Difficulty Paying for Meds: No Currently Unemployed: No Education: High School Diploma/GED Difficulty w/ Childcare or Family Care: No Living arrangements: other Spiritual care concerns: No Exam Day of Procedure 03/02/25 06:25
--- NOTE | 2025-03-02 07:37 | WPDOBADMIT ---
Obstetrics - Admit Note Admission Note: record reviewed. No pertinent additions to the history and/or any subsequent changes in the physical findings that are not consistent with the expected course of the were found. Additions to the history and/or subsequent changes in the physical findings follow. Admit for IOL, SVE /-2 AROM clear fluid, IUPC placed, anticipate vaginal delivery
[2025-03-02 14:40] LABS: Add Urine Microscopic? YES; Appearance Urine Clear (Clear); Bacteria Urine None Seen /hpf; Bilirubin Urine Negative (Negative); Blood Urine 1+ (Negative); Color Urine Yellow (Yellow); Glucose Urine UA Negative (Negative); Ketones Urine Trace mg/dL (Negative); Leukocyte Esterase Ur 1+ LEU/UL (Negative); Nitrate Urine Negative (Negative); Non Pathogenic Casts 0-2; Protein Urine Trace mg/dL (Negative); RBC Urine 21-50 /hpf (0-2); Squamous Epithelial Cell Urine Occasional /hpf (Few)
[2025-03-02] MEDS: PHENYLEPHRINE 1,000 MCG/10 ML SYRINGE 100 MCG IV PUSH (18:12)
[2025-03-02] MEDS: TERBUTALINE SULFATE 1 MG/ML VIAL 0.25 MG SUB-Q (18:22)
[2025-03-02] MEDS: ONDANSETRON INJ 4 MG/2 ML VIAL IV PUSH (19:51)
[2025-03-03] VITALS (50 sets, daily range): BP systolic 104–124; BP diastolic 57–89; PULSE 78–160; RESP 16–20; TEMP 36.2–37.1; O2SAT 97–100
[2025-03-03] MEDS: AMPICILLIN 2 GM/NS 100 ML 2 GM/100 ML BAG IVPB (01:19)
--- NOTE | 2025-03-03 03:13 | PM.OBPRVD ---
OB - Vaginal Delivery Note Procedure Delivery date: 03/03/25 Intrapartal Events: Decelerations and Other (prolonged rupture) Induction method: AROM, Per Misoprostol Protocol and Per Pitocin Protocol Delivery monitor: External FHT and Internal Uterine Route of delivery: Episiotomy description: None Laceration Description: Perineal - 1st Degree Delivery repair: vicryl Specimen: No Quantitative Blood Loss (ml): 450 Anesthesia type: Epidural Disposition: Floor Baby Date of : 03/03/25 Time of : 02:53 Gestational Age by Date: 39 Infant gender: Female presentation: vertex position: Left Occiput Anterior Placenta delivery description: Spontaneous Cord Vessel Description: Nuchal Cord (x1) score one minute: 7 score five minutes: 8
[2025-03-03] MEDS: miSOPROStol 200 MCG TABLET 800 MCG RECTAL (03:16)
[2025-03-03] MEDS: OXYTOCIN 30 UNITS/NS 500 ML 30 UNITS/500 ML BAG 125 UNITS IV CONT (03:21)
[2025-03-03] MEDS: IBUPROFEN 600 MG TABLET PO ×3 (05:13→16:14)
[2025-03-03] MEDS: WITCH HAZEL 40 PADS 1 PAD TOPICAL (05:16)
[2025-03-03] MEDS: BENZOCAINE 20% AER SPR (*SP) 56 GM CAN 1 SPRAY TOPICAL (05:16)
[2025-03-03] MEDS: DOCUSATE SODIUM 100 MG CAPSULE PO ×2 (09:58→16:13)
[2025-03-03] MEDS: MULTIVIT/MIN/PREN/FOL AC/IRON TABLET 1 TAB PO (09:58)
[2025-03-03] MEDS: ACETAMINOPHEN 325 MG TABLET 650 MG PO ×2 (09:59→16:14)
[2025-03-03] MEDS: AMPICILLIN TRIHYDRATE 500 MG CAPSULE PO ×2 (10:14→22:13)
--- NOTE | 2025-03-03 12:15 | PC.NURSE ---
Introductions were made, then consulted with patient to assess needs related to . Discussed with mother her?plans to feed?her and the?experience so far. She feels that feeding is going well. Baby is sleepy and takes awhile to latch sometimes. Resources provided for inpatient and outpatient services with the feeding sheet, mom/baby guide and name written on the communication board. Mother voiced understanding of information and will call if there is a request for assistance. Reported to the Primary RN.
--- NOTE | 2025-03-03 14:30 | PC.NURSE ---
1430- Patient called out for feeding assistance. She was working to wake baby and we placed baby in football hold on the left breast. Mom knows how to hold her breast and stroke baby's lip to elicit a wide gape. Baby was sleepy and would not open her mouth to latch. We worked for several minutes trying to stimulate baby to wake but were unsuccessful. Mom is encouraged to hold her skin to skin or swaddle her for 30 minutes and then try again. Mom will watch for feeding cues and call if baby is ready sooner. RN updated. 1505- Went to check on patient and attempt to feed baby again. Mom was asleep and did not stir when I entered. Baby was being held by a visitor. Dad will let mom know to call out when she is awake and ready to try feeding again. It has bee 3.5 hours since the last feeding. RN updated.
--- NOTE | 2025-03-03 14:39 | OBPPTRN ---
Patient and baby transferred to post room #282 via (wheelchair) Support person present. Oriented to unit, room, information board, rooming in, admission packet and security measures. Patient verbalizes understanding.
--- NOTE | 2025-03-03 16:10 | PC.NURSE ---
Mom ready to try again. Mom is great with different positions. We tried football, cradle, and then were successful with cross cradle. Baby was alert and awake but at first would just hold the nipple in her mouth without sucking. Then, after a few minutes of encouragement, she took off and was suckling consistently. She was able to maintain the latch well. Mom has latch on tenderness that dissipates as baby nurses. Mom seems confident with handling baby and is encouraged to continue working with her and practicing a deep latch. Reviewed alignment, tummy to tummy, and nose/chin close to breast. Patient is advised to call out when she needs assistance again. RN updated.
[2025-03-03 22:35] LABS: Hematocrit 30.1 % (37.0-47.0); Hemoglobin 9.5 g/dL (12.0-15.0)
[2025-03-04] MEDS: IBUPROFEN 600 MG TABLET PO ×2 (01:04→07:25)
[2025-03-04] MEDS: ACETAMINOPHEN 325 MG TABLET 650 MG PO (01:04)
[2025-03-04] MEDS: MULTIVIT/MIN/PREN/FOL AC/IRON TABLET 1 TAB PO (07:24)
[2025-03-04] MEDS: DOCUSATE SODIUM 100 MG CAPSULE PO (07:25)
[2025-03-04] MEDS: POLYSACCHARIDE IRON COMPLEX 150 MG CAPSULE PO (07:25)
--- NOTE | 2025-03-04 07:51 | P.PNOB_ITS ---
OB - PN: Subj Subjective Date/time seen: 03/04/25 07:51 Interval history: post bottle feeding plan d/c home OB - PN: Obj Data Labs 03/03/25 22:29 Labs: Laboratory Results - last 24 hr 03/03/25 22:29 Hgb 9.5 L Hct 30.1 L OB - PN A/P Plan day: 1 Plan: routine care and discharge home Time Spent With Patient Time: Total time spent is greater than 50% in coordination of care (as documented) at patient's floor/unit and/or counseling patient: Review of Systems 2 Review of Systems: All systems reviewed & are unremarkable except as noted in HPI and below Exam 2 Const: General: cooperative, healthy appearing and comfortable Chest: Chest palpation & inspection: normal inspection of the chest Resp: Effort & Inspection: normal respiratory effort Cardio: Rate: regular rate Rhythm: regular rhythm
--- NOTE | 2025-03-04 08:10 | WPDANLDPN2 ---
Anes-Prog Note L&D Date/Time: 03/04/25 08:10 Neuro status: Neuro function grossly intact. Cardiovascular status: normal Respiratory status: normal Airway patency: baseline Mental status: baseline Vital Signs: Last Vital Signs Temp 36.2 C L 03/03/25 19:55 Pulse 78 03/03/25 19:55 Resp 16 03/03/25 19:55 BP 114/71 03/03/25 19:55 Pulse Ox 98 03/03/25 19:55 O2 Del Method Room Air 03/03/25 19:55 Pain score (VAS): 0 Patient feedback: Patient satisfied with anesthetic care.
[2025-03-04 08:55] VITALS: BP 112/73; PULSE 88; RESP 18; TEMP 36.3; O2SAT 98
[2025-03-05 09:12] VITALS: BP 120/72; PULSE 79; RESP 18; TEMP 36.7; O2SAT 100
--- NOTE | 2025-03-08 08:22 | P.DS_ITS ---
DS: Admitting Diagnosis Discharge Date 03/04/25 Admitting Diagnosis IOL DS: Discharge Diagnosis Discharge Diagnosis (1) Vaginal delivery: Code(s): O80 - Encounter for full-term uncomplicated delivery Status: Acute OB - DS: Summary OB Procedures : None OB Procedures Intrapartum: Spontaneous Vag Delivery OB Procedures: : None Peripartum Data Laceration Description: Perineal - 1st Degree Episiotomy description: None Time Spent with Patient Time attestation: Total time spent providing and/or coordinating discharge services: Discharge Plan Discharge Attending physician on discharge: Jaden Collier Discharging Clinician: Rebecca Rmoero Patient Disposition: Home Activity: pelvic rest Diet: regular Discharge Instructions: Education: Mom and Baby Guide Given to: Mother Follow-Up: Call your delivering provider's office for an appointment to be seen in: 4 Weeks Mom and baby should come to the [facility] for the follow-up appointment. Appointment Date/Time: March 05, 2025 at 9:00 am What to expect at your follow-up visit: Blood Pressure Check Physical Assessment Call [phone] if you are unable to keep your appointment time. BREAST CARE: * Wear a snug supportive bra. * For engorgement discomfort: Breast Feeding: * Apply warm moist washcloths * Express milk as needed to relieve engorgement * Wear loose clothing Bottle Feeding: * May apply ice packs * For sore nipples: * Identify correct latch-on * Apply warm moist washcloths before and after nursing * Air dry nipples after nursing * May apply Lansinoh cream to nipples EPISIOTOMY/PERINEAL CARE: * Until bleeding stops, use your aida bottle after urinating * Change your pad frequently throughout the day * You may take sitz baths several times a day (fill your bathtub with warm water and soak for 20 minutes.) Do NOT bathe in the water * No tub baths until seen by your physician - You may shower ACTIVITY: * Rest as much as possible. * Do not exercise or lift anything heavier than your baby (such as laundry or other children.) * Avoid stairs or driving as much as possible. * Do not put anything into the vagina. No douching, tampons, or sexual activity until seen by physician. NOTIFY PHYSICIAN IF YOU HAVE ANY QUESTIONS OR IF ANY OF THE FOLLOWING SYMPTOMS OCCUR: * If your episiotomy or incision becomes red, swollen, or more painful than what you have experienced in the hospital. * If your vaginal bleeding becomes foul smelling. * If your vaginal bleeding becomes more heavy than a period or if your bleeding changes from pink to bright red. However, you may pass an occasional walnut- sized clot once or twice for the first week . * If you experience a sharp, shooting pain in you calves. * If you discover a hard, reddened area on your breast or if you experience flu- like symptoms. DIET: * Eat regular, well-balanced meals. * Drink plenty of fluids daily. If , drink to thirst. Patient Instructions: Caring for Your Baby (DC) Patient Language: Telugu Stand Alone Forms: General Discharge Information Follow-up/Referrals: Jaden Collier MD [Physician] - 4 Weeks Rebecca Romero CNM [Certified Nurse Social Media Executive] - Discharge Medications: Discontinued aspirin 81 mg tablet,chewable 81 mg PO DAILY famotidine 10 mg tablet 10 mg PO BID Qty: 14 0RF PNV #51-axvf-rgjht acid-dha 35 mg iron-5 mg iron-1 mg capsule 1 cap PO DAILY Qty: 90 3RF Date of admission: 03/01/25 16:47 Primary Care Provider: Bambi Correa Admitting Provider: Jaden Collier Attending physician on admission: Jaden Collier Condition: Stable
== END 2025-03-04 09:20 | disposition home or self-care (01) | DRG 560 ==
LOC: ANHLDR 16:53 → ANHOB2 03-03 05:32
PROVIDERS: Admitting Provider Obstetrics & Gynecology; PCP Nurse Practitioner Family; Referring Provider Advanced Practice Midwife; Visit Provider Obstetrics & Gynecology
DX: O69.81X0 Labor and delivery complicated by cord around neck, without compression, not applicable or unspecified (principal); Z37.0 Single live birth; Z3A.39 39 weeks gestation of pregnancy; O70.0 First degree perineal laceration during delivery; O36.8330 Maternal care for abnormalities of the fetal heart rate or rhythm, third trimester, not applicable or unspecified; O42.02 Full-term premature rupture of membranes, onset of labor within 24 hours of rupture
CPT/HCPCS: 36415; 81001; 85014; 85018; 85025; 86593; 86703; 86850; 86900; 86901; 87086; A9270; G0432; J0290; J0696; J2371; J2405; J2590; J2795; J3105; J7120

== ENCOUNTER 2025-03-24 00:09 | Emergency (ER) | payer OTHER, MEDICAID, SELFPAY ==
[2025-03-24] VITALS (9 sets, daily range): BP systolic 102–124; BP diastolic 70–76; PULSE 81–85; RESP 16; TEMP 36.6–36.9; O2SAT 99–100
--- OUTSIDE RECORDS SUMMARY | 2025-03-24 00:12 | XMS_ITS | Data Portability ---
Author Organization [facility] Address [address] [place] [address] [place] [address] Care Team Providers Care Strategic Marketing Leader Name Role Phone LUCIA KINCAID Primary Care Provider Assessment Encounter Date Assessment Date Assessment LastModified by Organization Details LastModified Time 02/23/2025 02/23/2025 Patient is __38_weeks . Discussed plan. Not available 02/23/2025 17:09:28 Plan of Treatment Reminders Order Date Submit Date Provider Last Modified By Organization Details Last Modified Time Details Appointments POST 2024 01:00P M Rebecca Romero CNM Not available Not available Not available Lab None recorded. Referral None recorded. Procedures None recorded. Surgeries None recorded. Imaging non-stres s test 2024 025 [address], [address], [place], [address], 02/24/2025 12:05:33 US, obstetric , biophysic al profile + non-stres s test 2024 025 [email or web address] [address], [address], [place], [address], 02/23/2025 21:18:15 US, obstetric , follow-up 2024 025 [email or web address] [address], [place], [address], 02/16/2025 15:59:48 US, obstetric , biophysic al profile + non-stres s test 2024 025 KENDAL Jefferson, [address], [place], [address], 02/16/2025 17:25:24 Medication Orders None recorded. Patient TargetsNo targets recorded. Patient InstructionsNo instructions [...] t Abnor mal: No Resul ting Lab: [facility] [address] [facility] [address] Tel: CULTU RE ----- ----- ----- --- No Group B strep isola brandie at 2 days (ele ctive broth enhan cemen t) Not Available [facility] (Lab) [address], [place], [address], 02/12/2025 15:11:21 02/02/2002/01/2025 non-s tress test No observ ation record ed. [address], [place], [address], 2025 08:15:06 02/11/20 25 02/10/2025 non-s tress test No observ ation record ed. [facility] [address], [place], [address], 02/16/2025 14:38:35 02/17/20 25 02/16/2025 US, obste tric, follo w-up No observ ation record ed. [email or web address] [address] [address], [place], [address], 02/16/2025 17:25:14 02/17/20 25 02/16/2025 US, paul tric, bioph ysica l profi le + non-s tress test No observ ation record ed. [email or web address] [place] [address], [place], [address], 02/16/2025 17:25:24 02/17/20 25 02/16/2025 US, obste tric, follo w-up No observ ation record ed. [email or web address] [address] [facility], [place], [address], 02/18/2025 16:17:10 02/17/20 25 02/16/2025 non-s tress test No observ ation record ed. [email or web address] [place] [address], [place], [address], 02/16/2025 20:26:24 02/17/20 25 02/16/2025 non-s tress test No observ ation record ed. [email or web address] [place] [address], [place], [address], 02/16/2025 22:02:51 02/21/20 25 02/20/2025 non-s tress test No observ ation record ed. [email or web address] Not Available 2024 06:27:36 02/24/20 25 02/23/2025 US, paul tric, bioph ysica l profi le + non-s tress test No observ ation record ed. [email or web address] [place] [address], [place], [address], 02/23/2025 18:17:22 02/24/20 25 02/23/2025 US, obste tric, follo w-up No observ ation record ed. [email or web address] [address], [place], [address], 02/24/2025 14:46:33 02/24/2002/23/2025 non-s tress test No observ ation record ed. [email or web address] [place] [address], [place], [address], 02/23/2025 20:32:05 02/24/20 25 02/23/2025 non-s tress test No observ ation record ed. [place] [address], [place], [address], 02/23/2025 20:33:47 Result Notes None recorded. Problems Name Problem SNOMED Code Status Onset Date Resolution Date Notes Provider Name and Address Organization Details Recorded Time 04581943 Active 2023 Lexie latham, [facility] 4 12:10:37 Obesity 034311483 Active bmi 37-anten atal testing Rebecca Romero CNM [address], [place], [address], [facility] 4 12:35:08 Primigravi da 591426669 Active bASA Rebecca Romero CNM [address], [place], [address], [facility] 4 12:36:02 COVID-19 418917048 Active 2024 bASA and serial growth Angelica latham, [facility] 5 15:23:56 COVID-19 882431497 Active 2024 bASA and serial growth Angelica latham, [facility] 15:23:56 Problem Notes None recorded. Procedures Surgical History Date Name Laterality Status Provider Name and Address Organization Details Recorded Time 04/13/20 24 Date of [facility] 13:18:31 10/13/19 09 tonsilectomy/adeno ids completed [facility] 08/04/2024 16:59:33 10/13/19 07 adenomyomectomy completed [facility] 08/04/2024 16:59:28 Imaging Results None recorded. [...] Address Organization Details Last Updated DateTime 5 688205. 03816 g 37.7 kg/m2 170.18 cm 170.18 cm 37.7 kg/m2 186075. 76 g 114 mm[Hg] 77 mm[Hg] 114 mm[Hg] 77 mm[Hg] Lexie Oilvo [facility] 5 20:24:35 Date Recorded Body weight Body mass index (BMI) Body height Body height Body mass index (BMI) Body weight Systolic blood pressure Diastolic blood pressure Systolic blood pressure Diastolic blood pressure Provider Name and Address Organization Details Last Updated DateTime 5 071145. 70577 g 37.9 kg/m2 170.18 cm 170.18 cm 37.9 kg/m2 962923. 35 g 121 mm[Hg] 81 mm[Hg] 121 mm[Hg] 81 mm[Hg] Lexie Olivo [facility] 5 20:30:36 Social History Question Answer Notes LastModified by Organizat ion Details LastModified Time Tobacco Smoking Status Never Smoker Lena Cartagena [facility] 01/20/2024 13:45:36 If You Are , What Was Your Level Of Alcohol Consumption Prior To ? Occasional [email or web address] Information not available 07/09/2024 How Many Years Have You Consumed Alcohol? 1 Information not available 04/13/2024 Are You Blind Or Do You Have Difficulty Seeing? No Information n ot available 04/13/2024 What Is Your Level Of Caffeine Consumption? Occasional Information not available 01/20/2024 How Much Tobacco Do You Chew? None Information not available 04/13/2024 In The 14 Days Before Symptom Onset, Have You Had Close Contact With A Laboratory-confirm ed COVID-19 While That Case Was Ill? No Information n ot available 01/20/2024 In The 14 Days Before [...] Of Diet Are You Following? REGULAR Information n ot available 04/13/2024 What Is The Highest Grade Or Level Of School You Have Completed Or The Highest Degree You Have Received? [id number] Information not available 04/13/2024 Are There Any Guns Present In Your [...] IV Drugs? No Information not available 04/13/2024 Do You Have Difficulty Walking Or Climbing Stairs? No Information not available 07/09/2024 Sex: Unknown Functional Status Question Answer Note LastModified by Organizat ion Details LastModified Time Do you use any illicit or recreational drugs? No Information not available 04/13/2024 What is your level of alcohol consumption? None [email or web address] Information not available 07/09/2024 Are you able to walk? YESWOREST Information not available 04/13/2024 Are you able to care for yourself? 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 No Information not available 07/09/2024 What is your exercise level? Occasional Information not available 04/13/2024 Mental Status Question Answer Note LastModified by Organization D etails LastModified Time Do you feel stressed (tense, restless, nervous, or anxious, or unable to sleep at night)? [id number] [email or web address] Information not available 08/04/2024 Family History Relationship Description Onset Age of this Age Resolved Age Notes LastModified by Organization Details LastModified Time Mother Hypertensive disorder Not available 2023 13:48:23 Paternal Grandmother Malignant tumor of breast [email or web address] Not available 2023 14:05:10 Paternal Grandfather Diabetes mellitus Not available 2023 13:49:17 Maternal Aunt Polycystic ovary syndrome [email or web address] Not available 02/10 14:28:10 Maternal Grandmother Disorder of thyroid gland [email or web address] Not available 08/25 12:10:06 Maternal Grandfather Hypertensive disorder [email or web address] Not available 08/25 12:10:06 Maternal Grandfather Diabetes mellitus [email or web address] Not available 10/20 16:36:23 Father Disorder of thyroid gland Not available 08/25 12:10:06 Medical History Condition Response Other N Blood Transfusion N Dermatologic Disorders N Gestational Diabetes N Anxiety Disorder N Autoimmune disease N Arthritis N Polyps N Infertility N Acid Reflux (GERD) N Cancer N Varicosities N Stroke N Neurologic/Epilepsy N Fibromyalgia N Headaches N Kidney Disease N Heart Problems N Kidney or Bladder Problems N Eating Disorder N Art (IVF or FET) N Hepatitis/Liver Disease N No Past Medical History N Urinary Tract Infection N Asthma N Trauma/Violence N Thrombophilias N Allergies (Food, seasonal, environmental ) N Breast Cancer N Drug/Latex Allergies/Reactions N Lung Disease N Defects or Inherited Disease N Breast Problem N Hematologic disorders N Anesthesia Complications N History of STI N Deep Vein Thrombosis N Polycystic ovary syndrome N History of abnormal pap N Endometriosis N High Cholesterol N Thyroid Problems N GI Problems N Anemia N Psychiatric Illness N Ovarian Cancer N Diabetes N Pulmonary (TB, Asthma) N Eczema N Abuse/Domestic Violence N Depression/ depression N Heart Disease N Pre-Eclampsia N Hypertension N Osteoporosis N Gynecological History Statement/Question Response Abnormal Pap [...] SNOMED-CT Code Diagnosis ICD10 Code Diagnosis Note [id number] NAM Sahu [place] [address] [address] 01/20/2024 13:38:11 01/20/2024 14:38:14 Contraception care management 223864762 Z30.9 Discussed all control options in great [...] care. Initial pr escription of oral contraception 087862357 Z30.011 [id number] NAM Sahu [place] [address] [address] 04/13/2024 16:17:42 04/14/2024 11:09:35 Screening procedure 00658461 Z13.9 Gynecologi c examination 15470792 Z01.419 Z11.3 Z11.8 WWEpap updateddec lined STI [...] plan if desired. Contracept ion care management 119818340 Z30.9 All BC options discussedo pts to switch to nextstelli srx sent, r/b/a reviewedre cords requested from recent pelvic u/s at [facility] d check in 3-4 months [id number] Jaden Collier MD [place] [address] [address] 07/09/2024 13:55:23 07/19/2024 14:54:37 Uterine size for dates discrepancy 207320820 O26.849 [id number] [facility] [address],[place] [address] 07/09/2024 13:57:09 07/12/2024 07:47:10 [id number] Jaden Collier MD [place] [address],[place] [address] 08/02/2024 16:26:08 08/02/2024 16:57:01 [id number] [facility] [address] [place] [address] 08/04/2024 16:31:47 08/05/2024 10:28:26 Nausea and vomiting 26682570 R11.2 Amenorrhea 11540445 N91. 2 reviewed precaution s and educationo k for flu/covid vaccinesed c 03/07/25, continue vitamin dailypap up to date [id number] Jaden Collier MD [place] [address],[place] [address] 08/24/2024 12:14:52 08/24/2024 13:12:57 screening 110093773 Z36.82 Z3A.12 [id number] [facility] [address] [place] [address] 08/25/2024 11:55:57 08/25/2024 12:52:32 Routine care 546773375 Z34.90 Gestation period, 12 weeks 30714994 Z3A.12 Dizziness 166568067 R42 [id number] Jaden Collier MD [place] [address] [place] [address] 09/22/2024 11:16:38 09/22/2024 12:09:53 Abdominal pain in 266549397 O99.891 Z3A.16 [id number] Rebecca Romero CNM [place] [address] [place] [address] 09/22/2024 11:17:59 09/22/2024 14:00:37 Gestation period, 16 weeks 76496229 Z3A.16 [id number] [facility] [address],[place] [address] 10/20/2024 14:36:08 10/20/2024 17:06:53 Gestation period, 20 weeks 65053491 Z3A.20 [id number] Jaden Collier MD [place] [address],[place] [address] 10/20/2024 14:46:47 10/20/2024 16:21:14 screening for malformation 398153635 Z36.3 Z3A.20 [id number] Jaden Collier MD [place] [address],[place] [address] 11/18/2024 11:44:24 11/18/2024 14:35:28 screening 439866451 Z36.2 Z3A.24 [id number] [facility] [address],[place] [address] 11/24/2024 14:31:12 11/24/2024 14:59:33 Gestation period, 25 weeks 78118003 Z3A.25 [id number] Jaden Collier MD [place] [address],[place] [address] 12/09/2024 14:48:54 12/09/2024 15:54:01 condition affecting obstetrical care of mother 436775003 O35.3XX0 Z3A.27 [id number] [facility] [address],[place] [address] 12/15/2024 15:30:06 12/15/2024 16:02:07 Gestation period, 28 weeks 09524468 Z3A.28 [id number] [facility] [address],[place] [address] 12/29/2024 14:07:57 12/29/2024 14:50:54 Gestation period, 30 weeks 30808328 Z3A.30 [id number] Jaden Collier MD [place] [address],[place] [address] 01/13/2025 13:43:36 01/13/2025 14:17:25 History of SARS-CoV-2 7067117181 78787554 Z86.16 Z3A.32 [id number] Rebecca Romero [facility] [address],[place] [address] 01/14/2025 11:53:24 01/14/2025 12:49:55 Gestation period, 32 weeks 2288516 Z3A.32 [id number] Jaden Collier MD [place] [address],[place] [address] 02/03/2025 15:22:36 02/04/2025 09:05:56 Third trimester 10665009 Z34.03 [id number] [facility] [address],[place] [address] 02/09/2025 12:03:00 02/09/2025 13:53:29 screening 790532809 Z36.85 Gestation period, 36 weeks 26282435 Z3A.36 [id number] Jaden Collier MD [place] [address],[place] [address] 02/16/2025 14:19:45 02/16/2025 15:12:39 Obesity 817692097 O99.210 Z86.16 Z3A.37 [id number] [facility] [address],[place] [address] 02/16/2025 14:20:18 02/17/2025 11:01:44 Body mass index 30+ - obesity 873170794 E66.9 [id number] [facility] [address],[place] [address] 02/16/2025 14:20:41 02/16/2025 16:17:55 Gestation period, 37 weeks 05844652 Z3A.37 cont pnv [id number] Jaden Collier MD [place] [address],[place] [address] 02/23/2025 14:27:41 02/23/2025 16:02:00 Maternal obesity complicating , childbirth and the puerperium, antepartum 7626994431 07 O99.210 Z86.16 Z3A.38 [id number] Rebecca Romero [facility] [address],[place] [address] 02/23/2025 14:28:26 02/24/2025 12:05:33 Obesity 029362606 O99.210 [id number] Rebecca Romero [facility] [address],[place] [address] 02/23/2025 14:28:57 02/23/2025 17:16:06 Gestation period, 38 weeks 05042073 Z3A.38 cont pnv [id number] Rebecca Romero [facility] [address],[place] [address] 03/01/2025 13:53:16 03/01/2025 15:54:20 Health Concerns Section Related Observation LastModified by Organization Detai ls LastModified Time None Recorded Concern Status LastModified by Organization Details LastModified Time None Recorded Advance Directives Directive None Recorded Payers Encounter Date Sequence Insurance Name Policy Number Policy Blanc Covered Member ID Blanc Member ID Guarantor Name 02/16/2025 2 [place] [facility] Stalin Downey [id number] Stalin Downey 02/23/2025 2 [place] [facility] Stalin Downey [id number] Stalin Downey 02/23/2025 2 [place] [facility] Stalin Downey [id number] Stalin Downey 02/23/2025 2 [place] [facility] Stalin Downey [id number] Stalin Downey 03/01/2025 2 [place] [facility] Stalin Downey [id number] Stalin C R Downey OBGyn Episode Ob Episode Information Episode Created Date Number of Fetuses Patient Bloodtype Patient rh Status Prepregnancy Weight lbs Domestic Partner Domestic Partner Phone Father Name Toe Sewer Status 08/25/20 24 1 B Positive 230 Jarrod Downey OPEN Fetus Data First Name Last Name Admitted to NICU Weight (g) Sex Living Outcome Pediatric Complications Fetus ID Race Codes Race Delivery Type [id number] Problems Problem Notes ovarian cyst Problem Name Start Date End Date Resolution Snomed Code Not e Primigravida 454182058 bASA COVID-19 11/01/2024 473973236 bASA and serial growth Obesity 597973171 bmi 37-ant enatal testing Sven Calculation Initial Sven Date Initial Exam Date Initial Exam Provider Initial Ultrasound Date Last Menstrual Period Date Ultra Sound Weeks Gestation 03/05/2025 08/02/2024 Rebecca Gardnergle 07/09/2024 04/17/2024 5 Eighteen To Twenty Week [...] Weight in lbs Pre/Post Dialysis Refused Weight 225.819554585090 BP Diastolic BP Location Tested BP Systolic [...] Type Weight in lbs Pre/Post Dialysis Refused 225.034619302416 BP Diastolic BP Location Tested BP Systolic [...] Type Weight in lbs Pre/Post Dialysis Refused 228.572243167340 BP Diastolic BP Location Tested BP Systolic [...] Type Weight in lbs Pre/Post Dialysis Refused 233.185253363596 BP Diastolic BP Location Tested BP Systolic [...] Type Weight in lbs Pre/Post Dialysis Refused 232.39170167323 BP Diastolic BP Location Tested BP Systolic [...] Type Weight in lbs Pre/Post Dialysis Refused 232.00091575616 BP Diastolic BP Location Tested BP Systolic [...] Weight in lbs Pre/Post Dialysis Refused Weight 233.465922113478 BP Diastolic BP Location Tested BP Systolic [...] Weight in lbs Pre/Post Dialysis Refused Weight 237.3044730220 BP Diastolic BP Location Tested BP Systolic [...] Weight in lbs Pre/Post Dialysis Refused Weight 236.995873533037 BP Diastolic BP Location Tested BP Systolic [...] Weight in lbs Pre/Post Dialysis Refused Weight 241.048086288644 BP Diastolic BP Location Tested BP Systolic BP Type 77 114 Fetus Heart Rate Present Fetus Movement Comments Flowsheet Date 02/16/2025 Shipley Score Blood Edema Fundus Height Fundus Units Glucose Ketones Leukocytes Nitrite Labor Signs Protein Cervic Dilation Cervic Effacement Cervic Station neg none Type Weight in lbs Pre/Post Dialysis Refused 241.11836933032 BP Diastolic BP Location Tested BP Systolic BP Type 77 114 Fetus Heart Rate Present Fetus Movement A Yes Comments Patient is having pain, cram ping and discharge. pt desires Elective IOL, discussed risks and benefits, +FM bpp 8/8 IOL 5/20at 1700 f/u one week efw 66% Flowsheet Date 02/23/2025 Shipley Score Blood Edema Fundus Height Fundus Units Glucose Ketones Leukocytes Nitrite Labor Signs Protein Cervic Dilation Cervic Effacement Cervic Station Type Weight in lbs Pre/Post Dialysis Refused BP Diastolic BP Location Tested BP Systolic BP Type Fetus Heart Rate Present Fetus Movement Comments Flowsheet Date 02/23/2025 Shipley Score Blood Edema Fundus Height Fundus Units Glucose Ketones Leukocytes Nitrite Labor Signs Protein Cervic Dilation Cervic Effacement Cervic Station Type Weight in lbs Pre/Post Dialysis Refused Weight 242.2393963349 BP Diastolic BP Location Tested BP Systolic BP Type 81 121 Fetus Heart Rate Present Fetus Movement Comments Flowsheet Date 02/23/2025 Shipley Score Blood Edema Fundus Height Fundus Units Glucose Ketones Leukocytes Nitrite Labor Signs Protein Cervic Dilation Cervic Effacement Cervic Station neg trace neg 1cm Type Weight in lbs Pre/Post Dialysis Refused 242.808306012545 BP Diastolic BP Location Tested BP Systolic BP Type 81 121 Fetus Heart Rate Present Fetus Movement A Yes Comments contractions, swelling. had headache and dizziness the other day and went to [facility]. was cleared and sent home feeling better, +FM doing well f/u one week IOL precautions and education reviewed Flowsheet Date 03/01/2025 Shipley Score Blood Edema Fundus Height Fundus Units Glucose Ketones Leukocytes Nitrite Labor Signs Protein Cervic Dilation Cervic Effacement Cervic Station Type Weight in lbs Pre/Post Dialysis Refused BP Diastolic BP Location Tested BP Systolic BP Type Fetus Heart Rate Present Fetus Movement Comments Menstrual History Last Menstrual Date Menses Monthly [...]
--- OUTSIDE RECORDS SUMMARY | 2025-03-24 00:13 | XMS_ITS | Clinical Summary ---
Author Organization [facility] Address [address] [place] [address] Phone Care Team Providers Care Fiber Drier Operator Name Role Phone Cris Posada MD Primary [...] 10:24 AM CDT Height 172.7 cm (5' 8) 09/13/2020 10:18 AM [employer] Body Mass Index 35.12 09/13/2020 10:18 AM [employer] Plan of Treatment Health Maintenance Due Date Last Done Comments CHLAMYDIA SCREENING (ANNUAL) 11-24 YEARS 2012 CERVICAL CANCER SCREENING 2022 HPV/Cotest (21-29) 2022 PAP SMEAR 2022 INFLUENZA VACCINE (#1) 2024 , 07/04/2017, 07/26/2015 DTAP/TDAP/TD VACCINES (8 - T d or Tdap) 09/13/2030 09/13/2020, 08/13/2012, 04/24/2006, Additional history exists HEPATITIS B VACCINES Completed 2001, 2001, 2001 HPV VACCINES Completed 09/13/2020, 07/26/2015 Insurance Care Teams Fiber Drier Operator Relationship Specialty Start Date End Date Cris Posada MD PCP - General Pediatrics 07/04/17
--- OUTSIDE RECORDS SUMMARY | 2025-03-24 00:13 | XMS_ITS | Clinical Summary ---
Author Organization [facility] Address [address] [place] [address] Care Team Providers Care Cvir Tech Name Role Phone Maia Gayle MD Primary Care Provider [phone] Source Comments [facility],non-[facility] Affiliates and Associated Physician Practices is amultiple site organization consisting of ambulatory clinics and hospital sitesin [place], [place], [place] and [place]. This disclosure is being madepursuant to the Care Everywhere program and may not contain all information available regarding this patient. 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 Gender Identity Not on file Sexual Orientation [...] - 3-dose series) 2016 CHLAMYDIA/GONORRHEA SCREENING 2017 HEPATITIS C SCREENING 03/10/2019 DTAP/TDAP/TD VACCINES (1 - Tdap) 2020 HEPATITIS B VACCINE (1 of 3 - 19+ 3-dose series) 2020 COVID-19 VACCINE (1 - 2023-2 5 season) 2024 DEPRESSION SCREENING 10/13/2024 INFLUENZA VACCINE (Season Ended) 2025 ZOSTER VACCINE (1 of 2) 2051 HIB VACCINE Aged Out No longer eligi ble based on patient's age to complete this topic MENINGOCOCCAL (Group B) VACC INE SHARED DECISION-MAKING Aged Out No longer eligibl e based on patient's age to complete this topic MENINGOCOCCAL GROUPS A/C/Y/W VACCINE Aged Out No longer eligible b ased on patient's age to complete this topic PNEUMOCOCCAL VACCINE Aged Out No long er eligible based on patient's age to complete this topic Insurance MEDICAID - [place] Care Teams Cvir Tech Relationship Specialty Start Date End Date Maia Gayle MD [address] [place] [address] PCP - General 03/07/12
--- OUTSIDE RECORDS SUMMARY | 2025-03-24 00:13 | XMS_ITS | CONTINUITY OF CARE DOCUMENT ---
Author Name alda lizama Address Unknown Organization [facility] Address [id number] [place] [address] [address] [place] [address] Phone [phone] Care Team Providers Care Medical Instructor Name Role Phone Sugey Williamson MD Unavailable [phone] KRYSTIN CELIS MD Unavailable [phone] INSURANCE PROVIDERS Payer name Policy type / Coverage type [place] red republican [place] [employer] Medicaid 1 [id number]
--- OUTSIDE RECORDS SUMMARY | 2025-03-24 00:47 | XMS_ITS | Clinical Summary ---
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
--- OUTSIDE RECORDS SUMMARY | 2025-03-24 00:47 | XMS_ITS | CONTINUITY OF CARE DOCUMENT ---
Author Name alda lizama Address Unknown Organization [facility] Address [id number] [place] [address] [address] [place] [address] Phone [phone] Care Team Providers Care Workers Compensation Legal Secretary Name Role Phone Sugey Williamson MD Unavailable [phone] KRYSTIN CELIS MD Unavailable [phone] INSURANCE PROVIDERS Payer name Policy type / Coverage type [place] red constitution party [employer] Medicaid 1 [id number]
--- OUTSIDE RECORDS SUMMARY | 2025-03-24 00:47 | XMS_ITS | Clinical Summary ---
Author Organization [facility] Address [address] [facility] [place] [address] Care Team Providers Care Salesperson Yard Goods Name Role Phone Maia Gayle MD Primary Care Provider [phone] Source Comments [facility],non-[facility] Affiliates and Associated Physician Practices is amultiple site organization consisting of ambulatory clinics and hospital sitesin [place], [place], [place]. This disclosure is being madepursuant to the Care Everywhere program and may not contain all information available regarding this patient. 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 [place] [address] PCP - General 03/07/12
[2025-03-24 01:41] LABS: BEDSIDEPREGUCG Negative (Negative)
[2025-03-24 02:02] LABS: Basophils Percent Auto 0.3 % (0.2-1.2); Eosinophils Absolute Auto 0.1 K/mm3 (0-0.3); Eosinophils Percent Auto 1.1 % (0-4.4); Hematocrit 35.1 % (37.0-47.0); Hemoglobin 10.6 g/dL (12.0-15.0); Immature Granulocyte Absolute 0.05 K/mm3 (0.00-0.031); Immature Granulocyte Percent A 0.4 % (0-0.5); Lymphocytes Absolute Auto 1.58 K/mm3 (0.9-3.2); Lymphocytes Percent Auto 13.2 % (18.3-44.2); Mean Corpuscular HGB Conc 30.2 g/dl (32-36); Mean Corpuscular Hemoglobin 25.5 pg (26-34); Mean Corpuscular Volume 84.4 fl (80-100); Mean Platelet Volume 10.6 fl (7.4-10.4); Monocytes Absolute Auto 0.6 K/mm3 (0.1-0.6); Monocytes Percent Auto 5.1 % (2.6-8.5); Neutrophils Absolute Auto 9.6 K/mm3 (1.3-6.7); Neutrophils Percent Auto 79.9 % (45.5-73.1); Platelet Count Result 304 k/mm3 (150-375); Red Blood Count 4.16 M/mm3 (4.2-5.4); Red Cell Distribution Width 13.7 % (11.5-14.5)
[2025-03-24 02:13] LABS: Alanine Aminotransferase 100 U/L (6-35); Albumin Level 3.8 g/dL (3.5-5.1); Alkaline Phosphatase 98 U/L (38-126); Anion Gap 8 mmol/L (4-12); Aspartate Amino Transferase 74 U/L (14-36); Bilirubin,Total 0.3 mg/dL (0.2-1.3); Blood Urea Nitrogen 13 mg/dL (7-17); Calcium 8.8 mg/dL (8.4-10.2); Carbon Dioxide 25 mmol/L (22-30); Chloride 105 mmol/L (98-107); Estimated CRCL calculation 134 ml/min; Estimated Glomerular Filt Rate > 60; Glucose 112 mg/dL (65-110); Lipase 118 U/L (23-300); Sodium 138 mmol/L (137-145); Total Protein 6.9 g/dL (6.3-8.2)
[2025-03-24 02:13] LABS: Add Urine Microscopic? YES; Appearance Urine Clear (Clear); Bacteria Urine None Seen /hpf; Bilirubin Urine Negative (Negative); Blood Urine Negative (Negative); Color Urine Yellow (Yellow); Glucose Urine UA Negative (Negative); Ketones Urine Negative (Negative); Leukocyte Esterase Ur 1+ LEU/UL (Negative); Nitrate Urine Negative (Negative); Non Pathogenic Casts 0-2; Protein Urine Negative (Negative); RBC Urine 0-2 /hpf (0-2); Specific Grav Ur 1.023 (1.001-1.035); Squamous Epithelial Cell Urine None Seen /hpf (Few); Urobilinogen Urine 0.2 mg/dL (<2.0)
[2025-03-24] MEDS: FAMOTIDINE 20 MG/2 ML VIAL IV PUSH (02:23)
[2025-03-24] MEDS: MAG HYDROX/AL HYDROX/SIMETH 30 ML UDC PO (02:27)
--- NOTE | 2025-03-24 02:35 | ED.GENADULT ---
HPI - General Adult General Chief complaint: Abdominal Pain Stated complaint: upper abd pain, N/V Time Seen by Provider: 03/24/25 00:37 History of Present Illness HPI narrative: A 25-year-old female with history of GERD presenting with epigastric pain. Patient stopped taking her from famotidine during her recent because she was not sure if it was safe for baby. She was treating her with Tums during that time. Since the baby was delivered she has stopped taking the Tums. She is now having intermittent sharp pain in the epigastric area that occurs after she eats certain foods. It always resolves on its own. She has had some nausea without vomiting. She is denying fevers chills chest pain difficulty breathing or urinary symptoms. She does not currently have any abdominal pain. Related Data Allergies Allergy/AdvReac Type Severity Reaction Status Date / Time No Known Allergies Allergy Mild Verified 03/24/25 00:10 [facility] Past Medical History Medical History GERD without esophagitis Anxiety Irritable bowel syndrome with diarrhea Healthy female adult Surgical History Surgical History Hx of tonsillectomy H/O adenoidectomy No pertinent past surgical history Family History Family History Mother Depression with anxiety Hypertension Sibling Heart disease heart problems Grandparent Alcoholism maternal grandmother Cancer paternal grandmother had breast cancer Depression with anxiety Diabetes mellitus Hypertension Cerebrovascular accident Social History Social History Smoking status: Never smoker Alcohol intake: never Substance use: never Substance use type: does not use Do You Feel Safe in your Home?: Yes Lack of Transportation: No Lack of Food: Never True Current Housing: I Have Housing Concerned About Future Housing: No Difficulty Paying Gas/Electric Bills: No Difficulty Paying for Meds: No Currently Unemployed: No Education: High School Diploma/GED Difficulty w/ Childcare or Family Care: No Living arrangements: other Spiritual care concerns: No Exam Narrative: APPEARANCE: No apparent distress. Head: atraumatic. EYES: EOMI, NOSE: Atraumatic NECK: Trachea midline RESPIRATORY: No increased rate of breathing clear to auscultation CARDIOVASCULAR: RRR, no peripheral edema ABDOMINAL: Abdomen is soft nontender no guarding or rebound no CVA tenderness MUSCULOSKELETAl: No obvious deformities NEURO: Alert. Moving 4/4 extremities SKIN:: Warm, dry. Normal color PSYCHIATRIC: Normal affect Course Vital Signs Vital signs: Vital Signs Temperature 98.4 F 03/24/25 00:11 Pulse Rate 85 03/24/25 00:11 Blood Pressure 124/76 03/24/25 00:11 Pulse Oximetry 100 03/24/25 00:11 Oxygen Delivery Room Air 03/24/25 00:11 Temperature 98.4 F 03/24/25 00:11 Pulse Rate 85 03/24/25 00:11 Blood Pressure 124/76 03/24/25 00:11 Pulse Oximetry 100 03/24/25 00:11 Oxygen Delivery Room Air 03/24/25 00:11 Medical Decision Making MDM Narrative Medical decision making narrative: -Course: 25-year-old female presenting with epigastric pain after eating. She has not been taking her anti acids or Tums. She is currently pain-free. Vital signs are stable. Her abdominal exam is benign. Lab work showed some slight elevations in liver function of undetermined etiology. Discussed the risks/benefits and utility of CT imaging in a young woman with a benign abdominal exam, without abdominal pain and stable vital signs. Using shared decision-making she would rather follow-up with her primary care physician to get repeat lab workup for her liver enzymes and outpatient right upper quadrant ultrasound. Patient given return precautions for fevers, persistent abdominal pain or any new or worsening symptoms. -DDX includes but is not limited to: GERD, gastritis, biliary colic, acute cholecystitis appendicitis, small-bowel obstruction Vital Signs Vital Signs: Vital Signs Temperature 98.4 F 03/24/25 00:11 Pulse Rate 85 03/24/25 00:11 Blood Pressure 124/76 03/24/25 00:11 Pulse Oximetry 100 03/24/25 00:11 Oxygen Delivery Room Air 03/24/25 00:11 Temperature 98.4 F 03/24/25 00:11 Pulse Rate 85 03/24/25 00:11 Blood Pressure 124/76 03/24/25 00:11 Pulse Oximetry 100 03/24/25 00:11 Oxygen Delivery Room Air 03/24/25 00:11 Lab Data 03/24/25 01:54 03/24/25 01:54 Labs: Lab Results 03/24/25 03/24/25 03/24/25 Range/Units 01:35 01:40 01:54 WBC 12.0 H (4.5-10.0) K/mm3 RBC 4.16 L (4.2-5.4) M/mm3 Hgb 10.6 L (12.0-15.0) g/dL Hct 35.1 L (37.0-47.0) % MCV 84.4 (80-100) fl MCH 25.5 L (26-34) pg MCHC 30.2 L (32-36) g/dl RDW 13.7 (11.5-14.5) % Plt Count 304 (150-375) k/mm3 MPV 10.6 H (7.4-10.4) fl Immature Gran % (Auto) 0.4 (0-0.5) % Neut % (Auto) 79.9 H (45.5-73.1) % Lymph % (Auto) 13.2 L (18.3-44.2) % [place] % (Auto) 5.1 (2.6-8.5) % Eos % (Auto) 1.1 (0-4.4) % Baso % (Auto) 0.3 (0.2-1.2) % Lymph # (Auto) 1.58 (0.9-3.2) K/mm3 [place] # (Auto) 0.6 (0.1-0.6) K/mm3 Eos # (Auto) 0.1 (0-0.3) K/mm3 Baso # (Auto) 0.0 (0.0-0.1) K/mm3 Abs Immat Gran (auto) 0.05 H (0.00-0.031) K/mm3 Absolute Neuts (auto) 9.6 H (1.3-6.7) K/mm3 Absolute Nucleated RBC 0.000 (0.0-0.012) K/mm3 Nucleated RBC % 0.0 (0.0-0.2) % Sodium 138 (137-145) mmol/L Potassium 4.0 (3.4-5.0) mmol/L Chloride 105 (98-107) mmol/L Carbon Dioxide 25 (22-30) mmol/L Anion Gap 8 (4-12) mmol/L BUN 13 D (7-17) mg/dL Creatinine 0.70 (0.7-1.0) mg/dL Estim Creat Clear Calc 134 ml/min Estimated GFR > 60 (59 - ) Glucose 112 H (65-110) mg/dL Calcium 8.8 (8.4-10.2) mg/dL Total Bilirubin 0.3 (0.2-1.3) mg/dL AST 74 H (14-36) U/L ALT 100 H (6-35) U/L Alkaline Phosphatase 98 (38-126) U/L Total Protein 6.9 (6.3-8.2) g/dL Albumin 3.8 (3.5-5.1) g/dL Lipase 118 (23-300) U/L Urine Color Yellow (Yellow) Urine Appearance Clear (Clear) Urine pH 6.0 (5.0-9.0) Ur Specific [place] 1.023 (1.001-1.035) Urine Protein Negative (Negative) mg/dL Urine Glucose (UA) Negative (Negative) mg/dL Urine Ketones Negative (Negative) mg/dL Ur Blood (Man) Negative (Negative) Urine Nitrate Negative (Negative) Urine Bilirubin Negative (Negative) Urine Urobilinogen 0.2 (<2.0) mg/dL Leukocyte Esterase Rfl 1+ H (Negative) CHAYA/UL Urine RBC 0-2 (0-2) /hpf Urine WBC 6-10 H (0-3) /hpf Ur Squamous Epith Cells None seen (Few) /hpf Urine Bacteria None seen /hpf Urine Casts 0-2 POC Urine HCG, Qual Negative (Negative) Discharge Plan Discharge Clinical Impression: Acute epigastric pain Patient Disposition: Home Condition: Stable Instructions: Antibiotic Form, GERD (Gastroesophageal Reflux Disease) (DC) Additional Instructions: You were seen in the emergency department for epigastric pain after eating. I believe this is due to GERD. Please resume your famotidine. Please follow-up with your primary care physician in the next 1 week to repeat your liver enzymes and to obtain a right upper quadrant ultrasound. If you develop fevers, persistent right upper quadrant abdominal pain or if you are getting worse please return to the ED for re-evaluation. Patient Language: Irish Prescriptions: New famotidine [Acid Controller] 20 mg tablet 20 mg PO BID Qty: 84 0RF Follow-up/Referrals: Bambi Correa, PUNCHBOARD STUFFER [Primary Care Provider] - 1 Week (Epigastric abdominal pain. )
== END 2025-03-24 02:55 | disposition home or self-care (01) ==
PROVIDERS: Emergency Provider Emergency Medicine; PCP Nurse Practitioner Family
DX: R10.13 Epigastric pain (principal)
CPT/HCPCS: 36415; 80053; 81001; 81025; 83690; 85025; 87086; 96374; 99284; A9270